=== PATIENT | female | born 1960 | race Caucasian/White ===

== ENCOUNTER 2018-11-29 14:53 | Inpatient (IN) | payer BC, SELFPAY ==
[2018-11-29] VITALS (17 sets, daily range): BP systolic 150–215; BP diastolic 73–116; PULSE 74–95; RESP 12–27; TEMP 36.9–37.3; O2SAT 75–97; BMI 50.9; BMI 50.8
--- NOTE | 2018-11-29 15:18 | EKG12_ITS ---
Test Reason : SOB Blood Pressure : / mmHG Vent. Rate : 083 BPM Atrial Rate : 083 BPM P-R Int : 142 ms QRS Dur : 080 ms QT Int : 378 ms P-R-T Axes : 049 097 046 degrees QTc Int : 444 ms Sinus rhythm with marked sinus arrhythmia Rightward axis Borderline ECG Confirmed by PRATIBHA MENSAH, TAPAN ([id number]), fashion editor JOSEY TRENT ([id number]) on 12/03/2018 1:14:03 PM Referred By: CHRISTINA Confirmed By:TAPAN MCKINNON MD
--- NOTE | 2018-11-29 15:18 | CT_ITS ---
STUDY: CTA CHEST REASON FOR EXAM: Female, 58 years old. Hypoxia, smoker. RADIATION DOSAGE (If Supplied By Facility): CTDIvol = ( 28.20 ) mGy, DLP = ( 747.06 ) mGycm TECHNIQUE: The examination was performed with the intravenous administration of 100mL IV Isovue 370. Post-processing of the angiographic images was performed, with multiplanar reformation and 3D reconstruction. Individualized dose optimization techniques were used for this CT. COMPARISON: None. FINDINGS: Normal enhancement of the main pulmonary artery and right and left pulmonary arteries. Normal enhancement of the bilateral peripheral pulmonary arteries. There is no demonstrated pulmonary embolism. The main pulmonary artery is dilated to 3.5 cm. Trace right pleural effusion. There is mild atelectasis along the anterior left upper lobe and lingula and mild bilateral costophrenic angle atelectasis. There is no focal pulmonary consolidation. Mild right middle lobe atelectasis and bronchiectasis medially. There are mild aortic calcifications.. There is no demonstrated aortic dissection. The heart is mildly enlarged. There is small pericardial effusion.. Mild coronary artery calcifications. No mediastinal, axillary or bulky hilar adenopathy. Normal visualized trachea and bronchi. Normal chest wall structures. Normal osseous structures. Normal visualized upper abdomen. CT/CTA Chest W/WO Contrast IMPRESSION: No pulmonary embolism or arterial dissection. The main pulmonary artery is dilated, this may represent pulmonary artery hypertension. Trace right pleural effusion and small pericardial effusion. Mild cardiomegaly. Electronically Signed: John Barbour, at 16:56 EDT Tel , Service support ,
--- NOTE | 2018-11-29 15:22 | ED.DCSUM_ITS ---
History of Present Illness Chief Complaint: Shortness of Breath Informant: Patient Onset: Weeks - 1 Narrative: Worsening dyspnea over the past week. Denies cough. Denies fever. Tobacco history. States has not smoked for the past week due to symptoms. Does complain of orthopnea sleeping on pillows. No leg swelling. Complains of exertional dyspnea with intermittent chest tightness. No recent travel, surgeries, or immobilizations. No history of PE or DVT. Does not take any daily medicines. Was seen at urgent care, sent here after breathing treatment. Denies wheezing. Denies history of similar, states did have pneumonia back in June and August. She had clinical symptoms at that time with productive sputum. triage noted pulse ox is 75% on room air, states is improving with oxygen. Blood pressure elevated, denies headache visual changes, current chest pains, nausea or vomiting. Complains of urine frequency. Prior similar symptoms: No Past Medical History - Allergies and Home Meds Allergies/Adverse Reactions: Allergies No Known Allergies Allergy (Verified 11/29/18 14:58) Primary Care Physician: Conrado Crowe PA [Primary Care Provider] - Smoking Status: Former smoker Review of Systems General: Denies: Chills, Fever, Sweats Eyes: Denies: Visual changes - bilaterally, Diplopia ENT: Denies: Rhinorrhea, Sore throat Cardiovascular: Denies: Chest pain, Palpitations Respiratory: Reports: Dyspnea, Dyspnea on exertion, Orthopnea. Denies: Cough Gastrointestinal: Denies: Abdominal pain, Nausea, Vomiting, Diarrhea, Melena, Hematochezia Genitourinary: Denies: Dysuria, Hematuria, Frequency Musculoskeletal: Denies: Back pain, Extremity Pain Skin: Denies: Rash, Wounds Neurological: Denies: Headache, Weakness, Numbness Physical Exam Vital Signs/Narrative: Vital Signs Temp Pulse Resp BP Pulse Ox 11/29/18 15:16 83 24 H 215/116 H 92 11/29/18 15:04 22 H 97 11/29/18 14:58 99.1 F 95 20 H 212/103 H 75 11/29/18 14:55 99.1 F 95 20 H 212/103 H 75 Inital Vital Signs reviewed: Yes General: Well nourished, Well developed, No Acute Distress Head: Normocephalic, Atraumatic Eyes: Perrl, EOMI ENT: Moist mucous membranes, No rhinorrhea Neck: Supple, Nontender Cardiovascular: Regular rate, Regular rhythm, No murmurs Respiratory: No distress, CTA bilaterally, Chest nontender Abdomen: Soft, Nontender, Nondistended, Normal bowel sounds Back: Nontender, Normal Inspection Extremities: Nontender, No edema Skin: Normal color, No rash Neurological: Alert, Oriented x3, Cranial nerves II-XII grossly intact, Normal Strength, Normal Sensation Psychological: Normal affect, Normal Mood Diagnostic/Tx/Re-eval Abnormal Lab Results 11/29/18 11/29/18 11/29/18 15:30 15:30 15:30 WBC 8.4 RBC 5.49 H Hgb 15.6 H Hct 50.4 H MCV 91.8 MCH 28.4 MCHC 31.0 L RDW 14.6 RDW Differential 49.0 H Plt Count 215 MPV 9.6 Immature Gran % (Auto) 0.100 Neut % (Auto) 67.7 Lymph % (Auto) 21.5 [place] % (Auto) 8.4 Eos % (Auto) 1.8 Baso % (Auto) 0.5 Absolute Neuts (auto) 5.7 Absolute Lymphs (auto) 1.80 Total Counted Not Reportable PT 13.1 INR 1.0 APTT 29.7 Sodium 140 Potassium 3.6 Chloride 101 Carbon Dioxide 38.0 H Anion Gap 1 L BUN 11 Creatinine 0.82 Estim Creat Clear Calc 58.42 Est GFR (MDRD) Af Amer 91 Est GFR (MDRD) Non-Af 75 BUN/Creatinine Ratio 13.4 Glucose 101 Calcium 8.7 Troponin I < 0.015 CTA chest: Negative for PE dissection. There is dilated pulmonary artery concerns for pulmonary hypertension. - Medical Decision Making Patient hypoxic 75% room air on arrival responded to O2. She complains of dyspnea normal lung sounds, no cough. There is no PE risk factors, however his presentation is moderate risk Wells criteria for PE with her hypoxemia. Discussed with patient work-up to rule out. Cardiac work-up including EKG normal. BNP still pending. She has no swelling the legs. Normal hemoglobin, normal electrolytes negative troponin. Blood pressure elevated on arrival multiple reevaluation still over 200 last checked at 1730 is 196/100. She is ordered for 10 mg IV labetalol heart rate was high 70s. ABG ordered for further evaluation due to hypoxia. Currently with accelerated hypertension with hypoxemia. I discussed with hospitalist for admission to PCU. ED Disposition - Plan for ED Patient: Disposition: Acute Care Hospital [facility] Diagnosis: Accelerated hypertension, Hypoxemia Referrals: Conrado Crowe PA [Primary Care Provider] -
[2018-11-29 15:45] LABS: Absolute Neutrophil Count 5.7 X10^3/uL (2.0-7.7); Basophil# 0.04 X10^3/uL; Basophil% 0.5 % (0-1); Eosinophil# 0.15 X10^3/uL; Eosinophils% 1.8 % (0-5); Hematocrit 50.4 % (37-47); Hemoglobin 15.6 g/dl (12.0-15.0); Lymphocyte % 21.5 % (19-41); Mean Corpuscular Hgb 28.4 pg (27.0-32.0); Mean Corpuscular Volume 91.8 fL (81-99); Mean Platelet Vol. 9.6 fl (6.2-12.0); Monocyte% 8.4 % (0-10); Neutrophil # 5.66 X10^3/uL (2.7-7.7); Neutrophil % 67.7 % (47-70); Platelet Count 215 K/mm3 (150-450); RBC Distribution Width CV 14.6 % (11.6-14.6); Red Blood Count 5.49 M/mm3 (4.2-5.4); White Blood Count 8.4 K/mm3 (4.4-11.0)
[2018-11-29 15:49] LABS: POSITIVE COUNT NO; POSITIVE DIFFERENTIAL NO; POSITIVE MORPHOLOGY NO
[2018-11-29 15:56] LABS: Prothrombin Time (Protime)PT. 13.1 SECONDS (11.7-14.9)
[2018-11-29 15:57] LABS: Partial Thromboplast Time 29.7 Seconds (24.1-36.2)
[2018-11-29 16:05] LABS: BUN 11 mg/dL (7-18); Creatinine, Serum 0.82 mg/dL (0.55-1.02); Estimated Creatinine Clearance 58.42 ml/min; Glucose 101 mg/dL (74-106)
[2018-11-29 16:06] LABS: Anion Gap 1 (5-15); BUN/Creat Ratio 13.4 RATIO (10-20); Calcium,Total 8.7 mg/dL (8.5-10.1); Chloride 101 mmol/L (98-107); EST Glomerular Filtration Rate 75 mL/min (>60); Est Glom Filt Rate - Afr Amer 91 mL/min (>60); Potassium 3.6 mmol/L (3.5-5.1); Sodium Level 140 mmol/L (136-145)
[2018-11-29 17:32] LABS: Bacteria 0 SEEN /hpf (None Seen); Mucous, Urine 0 SEEN /hpf (<or=2+)
[2018-11-29 17:40] LABS: Color, Urine Yellow (Yellow); Glucose, Dipstick Normal (Normal); Ketone-Dipstick Negative (Negative); Nitrite-Dipstick Negative (Negative); Occult Blood-Urine 10 /ul (Negative); Protein-Dipstick 30 mg/dl (Negative); Specific Gravity, Urine 1.005 (1.002-1.030); Urine Bilirubin Dipstick Negative (Negative); Urine Clarity Clear (Clear); Urine Urobilinogen Normal (Normal)
[2018-11-29 17:50] LABS: Red Blood Cells-Urine 5-10 SEEN /hpf (0-5)
--- NOTE | 2018-11-29 17:50 | PCM.HP.STD ---
<Edgardo Sagastume - Last Filed: 11/29/18 17:50> Problem List (1) Acute respiratory failure with hypoxia Status: Acute (2) HTN (hypertension) Status: Chronic (3) Obesity Status: Acute (4) Nicotine abuse Status: Acute History of Present Illness Date of Admission: 11/29/18 Chief Complaint: SOB The patient is a 58 year old F with pmhx of morbid obesity and nicotine abuse, not on any home meds, who presents to the ER with SOB. This has been progressively worsening over the past 2 weeks. She is SOB at rest and worse with exertion. No cough, fevers, or chills, no urinary issues. She has PND and orthopnea, and she states that she has gained about 10 lbs in the past 2 weeks - she states this is all in her belly which she feels is bloated. She has also felt palpitations this past week. No CP/heaviness/tightness. She reports along with her PND and orthopnea that she has witnessed apneic events at night and snores. She states she can sleep 24 hours per day and is tired all the time. She has slight LE edema. No dizziness / LH. In the ER she has hypoxia to the 70s at rest, stable on 2 liters. She has severely elevated htn. CTA chest shows pulmonary htn, trace pleural effusions and small pericardial effusion. Trop neg, BNP is pending. EKG is sinus arrhythmia. She smokes about 1/2 ppd, has smoked since about age 17 about 39 years. 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 Denies: Chills, Fever, Weight Change HEENT: Denies: Head Aches, Sinus Congestion, Sinus Drainage Cardiovascular: Reports: Edema, Orthopnea, Palpitations, Paroxysmal Noc. Dyspnea. Denies: Chest Pain, Claudication, Chest Pressure, Chest Tightness, Heaviness, Light Headedness, Syncope Respiratory: Reports: Shortness of Breath, Shortness of breath at rest. Denies: Cough, Pleuritic Pain, Shortness of breath upon exertion, Sputum production, Wheezing Gastrointestinal: Reports: - - bloating. Denies: Abdominal Pain, Nausea, Vomiting Genitourinary: Denies: Dysuria, Retention, Urgency Musculoskeletal: Denies: Joint Pain, Joint Tenderness Skin: Denies: Rash, Wounds Neurological: Denies: Numbness, Tingling, Focal weakness Psychiatric: Denies: Anxiety, Depression, Homicidal Ideations, Suicidal Ideations Hematologic/ Lymphatic: Denies: Easy Bruising, Easy Bleeding VTE Information - Inpt Only VTE Present on Admission: No VTE Mechan Device Prophylaxis: None VTE Pharm Prophylaxis ordered?: Yes Patient Problems: Active and Suspected Problems Accelerated hypertension (Acute) Hypoxemia (Acute) Obesity (Acute) Nicotine abuse (Acute) Acute respiratory failure with hypoxia (Acute) - Physical Exam General: Alert, Oriented x3, Cooperative HEENT: Atraumatic, PERRLA, EOMI, Normocephalic Neck: Supple, No JVD, Negative Carotid Bruits Lungs: Clear to auscultation, Diminished Cardiovascular: No murmurs, Irregular Rate Abdomen: Bowel Sounds Present, Soft, Non Tender, Obese Extremities: Edema - trace Skin: No rashes, No breakdown Musculoskeletal: No Tenderness to Palpation of Joints or Extremities Neurological: Cranial nerves II-XII grossly intact Psych/Mental Status: Normal Affect, Appropriate, Alert and oriented to time, place, person, mood and affect Vital Signs Temp Pulse Resp BP Pulse Ox 99.1 F 79 18 196/100 H 95 11/29/18 14:58 11/29/18 17:26 11/29/18 17:26 11/29/18 17:26 11/29/18 17:26 Oxygen Flow Rate (L/min) 2 Oxygen Delivery Method Nasal Cannula Weight: 278 lb 6.4 oz Body Mass Index (BMI) 50.9 Laboratory Tests Past 24 Hrs 11/29/18 11/29/18 11/29/18 15:30 15:30 15:30 WBC 8.4 RBC 5.49 H Hgb 15.6 H Hct 50.4 H MCV 91.8 MCH 28.4 MCHC 31.0 L RDW 14.6 RDW Differential 49.0 H Plt Count 215 MPV 9.6 Immature Gran % (Auto) 0.100 Neut % (Auto) 67.7 Lymph % (Auto) 21.5 Stanley % (Auto) 8.4 Eos % (Auto) 1.8 Baso % (Auto) 0.5 Absolute Neuts (auto) 5.7 Absolute Lymphs (auto) 1.80 Total Counted Not Reportable PT 13.1 INR 1.0 APTT 29.7 Sodium 140 Potassium 3.6 Chloride 101 Carbon Dioxide 38.0 H Anion Gap 1 L BUN 11 Creatinine 0.82 Estim Creat Clear Calc 58.42 Est GFR (MDRD) Af Amer 91 Est GFR (MDRD) Non-Af 75 BUN/Creatinine Ratio 13.4 Glucose 101 Calcium 8.7 Troponin I < 0.015 Urine Color Urine Clarity Urine pH Ur Specific [place] Urine Protein Urine Glucose (UA) Urine Ketones Urine Occult Blood Urine Nitrite Urine Bilirubin Urine Urobilinogen Ur Leukocyte Esterase Urine RBC Urine WBC Ur Squamous Epith Cells Urine Bacteria Urine Mucus 11/29/18 17:16 WBC RBC Hgb Hct MCV MCH MCHC RDW RDW Differential Plt Count MPV Immature Gran % (Auto) Neut % (Auto) Lymph % (Auto) Stanley % (Auto) Eos % (Auto) Baso % (Auto) Absolute Neuts (auto) Absolute Lymphs (auto) Total Counted PT INR APTT Sodium Potassium Chloride Carbon Dioxide Anion Gap BUN Creatinine Estim Creat Clear Calc Est GFR (MDRD) Af Amer Est GFR (MDRD) Non-Af BUN/Creatinine Ratio Glucose Calcium Troponin I Urine Color Yellow Urine Clarity Clear Urine pH 6.0 Ur Specific [place] 1.005 Urine Protein 30 H Urine Glucose (UA) Normal Urine Ketones Negative Urine Occult Blood 10 H Urine Nitrite Negative Urine Bilirubin Negative Urine Urobilinogen Normal Ur Leukocyte Esterase 500 H Urine RBC Pending Urine WBC Pending Ur Squamous Epith Cells Pending Urine Bacteria Pending Urine Mucus Pending Assessment/Plan All Active Problems Accelerated hypertension (Acute) Hypoxemia (Acute) Obesity (Acute) Nicotine abuse (Acute) Acute respiratory failure with hypoxia (Acute) 1. Acute hypoxic/hypercapneic respiratory failure - suspect underlying pulmonary htn, cor pulmonale/CHF. CTA with pulmonary htn, small effusions, recent 10 lb unexplained weight gain over 2 weeks, trace lower extremity edema, increased abdominal bloating. +PND and orthopnea. EKG with sinus arrhythmia. BNP pending. Trop neg x1, cycle. Maintain on tele. Overnight trending pulse ox. Obtain echo. start IV lasix. -doubt infectious etiology no cough fevers/chills, leukocytosis, no urinary symptoms. -consider pulmonary consult. 2. Hypertensive emergency - contributing to above. Start lasix. PRN hydralazine. 3. Suspected YAMILETH / OHS - feels tired all day, can sleep 24 hours straight, very htn, witnessed apnea, snores, very obese with large neck. Trending overnight pulse ox. Needs o/p sleep study. Consider cpap/bipap trial. 4. 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 5. Nicotine abuse - patch if desired. Increased CO2. Needs o/p PFTs with 40 yr smoking hx. No wheezing on exam. Diminished lungs throughout. DVT ppx: lovenox This patient was seen by Edgardo Sagastume PA-C under the supervision of Dr. Gonsalves <Jelly Gonsalves - Last Filed: 11/29/18 21:09> History of Present Illness The patient is a 58 year old F [] Past Medical History Allergies No Known Allergies Allergy (Verified 11/29/18 14:58) - Physical Exam Vital Signs Temp Pulse Resp BP Pulse Ox 98.6 F 75 20 H 164/80 H 96 11/29/18 20:20 11/29/18 20:20 11/29/18 20:20 11/29/18 20:20 11/29/18 20:20 Oxygen Flow Rate (L/min) 3 Oxygen Delivery Method Nasal Cannula Weight: 125.9 kg Body Mass Index (BMI) 50.8 Laboratory Tests Past 24 Hrs 11/29/18 11/29/18 11/29/18 15:30 15:30 15:30 WBC 8.4 RBC 5.49 H Hgb 15.6 H Hct 50.4 H MCV 91.8 MCH 28.4 MCHC 31.0 L RDW 14.6 RDW Differential 49.0 H Plt Count 215 MPV 9.6 Immature Gran % (Auto) 0.100 Neut % (Auto) 67.7 Lymph % (Auto) 21.5 Stanley % (Auto) 8.4 Eos % (Auto) 1.8 Baso % (Auto) 0.5 Absolute Neuts (auto) 5.7 Absolute Lymphs (auto) 1.80 Total Counted Not Reportable PT 13.1 INR 1.0 APTT 29.7 Specimen Type Sample Site pH Bicarbonate Actual POC Total CO2 Base Excess O2 Saturation ABG pCO2 ABG pO2 O2 Delivery Device Liter Flow Blood Gas Notified Whom Sodium 140 Potassium 3.6 Chloride 101 Carbon Dioxide 38.0 H Anion Gap 1 L BUN 11 Creatinine 0.82 Estim Creat Clear Calc 58.42 Est GFR (MDRD) Af Amer 91 Est GFR (MDRD) Non-Af 75 BUN/Creatinine Ratio 13.4 Glucose 101 Calcium 8.7 Troponin I < 0.015 B-Natriuretic Peptide Urine Color Urine Clarity Urine pH Ur Specific [place] Urine Protein Urine Glucose (UA) Urine Ketones Urine Occult Blood Urine Nitrite Urine Bilirubin Urine Urobilinogen Ur Leukocyte Esterase Urine RBC Urine WBC Ur Squamous Epith Cells Urine Bacteria Urine Mucus 11/29/18 11/29/18 11/29/18 15:30 17:16 18:15 WBC RBC Hgb Hct MCV MCH MCHC RDW RDW Differential Plt Count MPV Immature Gran % (Auto) Neut % (Auto) Lymph % (Auto) Stanley % (Auto) Eos % (Auto) Baso % (Auto) Absolute Neuts (auto) Absolute Lymphs (auto) Total Counted PT INR APTT Specimen Type ART Sample Site L Radial pH 7.30 L Bicarbonate Actual 34.6 H POC Total CO2 37 Base Excess 8 H O2 Saturation 93 L ABG pCO2 69.9 H* ABG pO2 78 O2 Delivery Device Nasal Can Liter Flow 3.0 Blood Gas Notified Whom ED Sodium Potassium Chloride Carbon Dioxide Anion Gap BUN Creatinine Estim Creat Clear Calc Est GFR (MDRD) Af Amer Est GFR (MDRD) Non-Af BUN/Creatinine Ratio Glucose Calcium Troponin I B-Natriuretic Peptide 99.6 Urine Color Yellow Urine Clarity Clear Urine pH 6.0 Ur Specific [place] 1.005 Urine Protein 30 H Urine Glucose (UA) Normal Urine Ketones Negative Urine Occult Blood 10 H Urine Nitrite Negative Urine Bilirubin Negative Urine Urobilinogen Normal Ur Leukocyte Esterase 500 H Urine RBC 5-10 SEEN Urine WBC 5-10 SEEN Ur Squamous Epith Cells 0-5 SEEN Urine Bacteria 0 SEEN Urine Mucus 0 SEEN 11/29/18 18:50 WBC RBC Hgb Hct MCV MCH MCHC RDW RDW Differential Plt Count MPV Immature Gran % (Auto) Neut % (Auto) Lymph % (Auto) Stanley % (Auto) Eos % (Auto) Baso % (Auto) Absolute Neuts (auto) Absolute Lymphs (auto) Total Counted PT INR APTT Specimen Type Sample Site pH Bicarbonate Actual POC Total CO2 Base Excess O2 Saturation ABG pCO2 ABG pO2 O2 Delivery Device Liter Flow Blood Gas Notified Whom Sodium Potassium Chloride Carbon Dioxide Anion Gap BUN Creatinine Estim Creat Clear Calc Est GFR (MDRD) Af Amer Est GFR (MDRD) Non-Af BUN/Creatinine Ratio Glucose Calcium Troponin I < 0.015 B-Natriuretic Peptide Urine Color Urine Clarity Urine pH Ur Specific [place] Urine Protein Urine Glucose (UA) Urine Ketones Urine Occult Blood Urine Nitrite Urine Bilirubin Urine Urobilinogen Ur Leukocyte Esterase Urine RBC Urine WBC Ur Squamous Epith Cells Urine Bacteria Urine Mucus Assessment/Plan This patient was seen in conjunction with TAVON Dangelo. I have independently interviewed and examined the patient and reviewed pertinent historical, laboratory, and other data. Please refer to TAVON Dangelo note for his patient's presentation, findings, and recommendations. I have reviewed and his note and concur with his documentation CC: Shortness of breath worsening over the last couple of weeks. HPI: 58-year-old female with no significant past medical history, remote history of PE, not on any medications, who comes in with progressive worsening shortness of breath ongoing for weeks. Patient admits to orthopnea, PND, leg swelling, weight gain. She has dyspnea on exertion and at rest. SPO2 in the ED was 75%. Patient improved with intranasal cannula. PMHX: Most history of PE PSHx: Status post hysterectomy FHX: Mother had heart disease, had prostate cancer SHX: Smokes, denies any use of alcohol or illicit drugs Physical Exam: Vitals: Temperature is 99.1 F, heart rate is 95, blood pressure is 212/103, respiratory rate is 20, SPO2 is 75% on room air Gen: Maira obese, comfortable sitting in a chair, on 2 L of oxygen,, not pale, not jaundiced CVS:HS I +II, regular, tachycardia RESP: Diminished at lung bases, with coarse crackles heard GI: BS present and normal, soft, nontender, no palpable organs EXT: Bilateral trace to +1 pedal edema Labs: WBC count 8.4, hemoglobin 15.6, platelet count 215, BMP is unremarkable, UA is unremarkable ABG showed pH 7.30, PCO2 69.9, PO2 78 CTA chest was suggestive of pulmonary hypertension, no PE, trace right pleural effusion, small pericardial effusion, mild cardiomegaly ASSESSMENT: 1. Acute combined respiratory failure 2. Pulmonary hypertension seen on CTA chest 3. Possible YAMILETH, not formally diagnosed 4. Possible acute diastolic CHF 5. Super morbid obesity 6. Nicotine dependence, advised to quit 7. Possible COPD, no signs of exacerbation now Plan: Admit to PCU, continue onoxygen Repeat ABG; will have low threshold of starting BiPAP if ABGs are the same or worse Breathing treatments Pulmonology consult Low-dose Lasix 20 mg IV, strict I's and O's Nicotine patch Will hold off start of IV steroids as I am not convinced patient is in COPD exacerbation 2D echo, sleep study (in the outpatient) She may need right heart cath to assist in evaluating for pulmonary hypertension Code Visit Inpatient E&M: 09973 Init Hosp L3
[2018-11-29 17:51] LABS: Leukocyte Esterase-Dipstick 500 /ul (Negative); Squamous Epithelial Cells - UA 0-5 SEEN /hpf (5-10); White Blood Cells 5-10 SEEN /hpf (0-5)
[2018-11-29 18:26] LABS: Base Excess 8 mmol/L (-2 to +2); Bicarbonate 34.6 mmol/L (22-26); Blood Gas Specimen Type ART; O2 Delivery Device Nasal Can; PO2 78 mmHG (75-100); SITE L Radial; SO2 93 % (95-99); Total Carbon Dioxide 37 mmol/L; pCO2 69.9 mmHg (35-45)
[2018-11-29 18:37] LABS: BNP,B-Type NATRIURETIC PEPTIDE 99.6 pg/mL (0-100)
--- NOTE | 2018-11-29 18:49 | CPS ---
Critical results shown to Dr. Rodriguez
[2018-11-29] MEDS: Ipratropium/Albuterol Sulfate 3 ML AMPUL.NEB INHALATION (21:46)
[2018-11-29] MEDS: Furosemide 20 MG/2 ML VIAL IV (22:07)
[2018-11-29] MEDS: Heparin Injection (Vial) 5,000 UNIT/ML VIAL 5000 UNIT SC (22:08)
[2018-11-29] MEDS: 0.9% NaCl Peripheral Flush Adult/Peds IV ×2 (22:08→22:10)
[2018-11-29 22:20] LABS: Allen Test POS; Base Excess 8 mmol/L (-2 to +2); Bicarbonate 34.6 mmol/L (22-26); Blood Gas Specimen Type ART; O2 Delivery Device Nasal Can; PO2 78 mmHG (75-100); SITE L Radial; SO2 93 % (95-99); Time Given 2200; Total Carbon Dioxide 37 mmol/L; pCO2 71.6 mmHg (35-45); pH 7.29 (7.35-7.45)
--- NOTE | 2018-11-29 23:24 | CPS ---
abg results were called to Dr Conway. bipap was ordered ph [phone] pco2 [phone]
[2018-11-30] VITALS (25 sets, daily range): BP systolic 96–166; BP diastolic 48–97; PULSE 73–87; RESP 12–28; TEMP 36.5–37.1; O2SAT 88–96
[2018-11-30 06:16] LABS: Absolute Lymphocyte Count 1.68 X10^3/ul (0.83-4.51); Absolute Neutrophil Count 4.3 X10^3/uL (2.0-7.7); Basophil# 0.02 X10^3/uL; Basophil% 0.3 % (0-1); Eosinophil# 0.13 X10^3/uL; Eosinophils% 1.9 % (0-5); Hematocrit 49.7 % (37-47); Hemoglobin 14.8 g/dl (12.0-15.0); Lymphocyte # 1.68 X10^3/ul (4.0); Lymphocyte % 24.9 % (19-41); Mean Corp Hgb Conc 29.8 g/gl (32-36); Mean Corpuscular Hgb 27.5 pg (27.0-32.0); Mean Corpuscular Volume 92.4 fL (81-99); Mean Platelet Vol. 9.7 fl (6.2-12.0); Monocyte# 0.64 X10^3/uL; Monocyte% 9.5 % (0-10); Neutrophil # 4.28 X10^3/uL (2.7-7.7); Neutrophil % 63.3 % (47-70); POSITIVE COUNT NO; POSITIVE DIFFERENTIAL NO; POSITIVE MORPHOLOGY NO; Platelet Count 210 K/mm3 (150-450); RBC Distribution Width SD 49.7 fl (35.1-43.9); Red Blood Count 5.38 M/mm3 (4.2-5.4); White Blood Count 6.8 K/mm3 (4.4-11.0)
[2018-11-30] MEDS: 0.9% NaCl Peripheral Flush Adult/Peds IV (06:17)
[2018-11-30] MEDS: Heparin Injection (Vial) 5,000 UNIT/ML VIAL 5000 UNIT SC ×3 (06:17→21:28)
[2018-11-30 06:33] LABS: Anion Gap 3 (5-15); BUN 10 mg/dL (7-18); Calcium,Total 8.7 mg/dL (8.5-10.1); Chloride 100 mmol/L (98-107); Creatinine, Serum 0.71 mg/dL (0.55-1.02); EST Glomerular Filtration Rate 89 mL/min (>60); Est Glom Filt Rate - Afr Amer 108 mL/min (>60); Estimated Creatinine Clearance 67.48 ml/min; Glucose 95 mg/dL (74-106); Potassium 3.8 mmol/L (3.5-5.1); Sodium Level 143 mmol/L (136-145)
[2018-11-30] MEDS: Ipratropium/Albuterol Sulfate 3 ML AMPUL.NEB INHALATION ×5 (06:40→22:18)
--- NOTE | 2018-11-30 07:33 | ECHOCS_ITS ---
Reason For Study: SOB Procedure This was a 2D Doppler, Color Flow transthoracic echocardiogram. The study was technically difficult. Pt scanned supine. Contrast injection was performed. Exam performed portable in patient room. Left Ventricle Normal LV size. Left ventricular systolic function is normal. The estimated ejection fraction is 65 %. Transmitral doppler flow suggestive of impaired relaxation of left ventricle. No regional wall motion abnormalities noted. Right Ventricle Normal RV size. Normal systolic function. Atria The left atrium is mildly enlarged. Normal right atrium. No doppler evidence for ASD. Mitral Valve There is no mitral annular calcification. Normal mitral valve. Trivial mitral valve insufficiency. Tricuspid Valve Normal tricuspid valve. Trivial tricuspid valve insufficiency. Right ventricular systolic pressure estimated to be 39 mmHg. Aortic Valve Trisinus/trileaflet aortic valve. Normal aortic valve. Pulmonic Valve The pulmonic valve is not well visualized. Trivial pulmonic valve insufficiency. Great Vessels Normal sized aortic root. Pericardium/Pleural Trivial pericardial effusion. There are no echocardiographic indications of cardiac tamponade. Medication Diluted definity 3.5ml given slow IV push to enhance endocardial definition. MMode/2D Measurements & Calculations LVIDd: 5.0 cm IVSd: 1.2 cm Ao root diam: 3.1 cm LVIDs: 3.4 cm LVPWd: 1.2 cm RVDd: 3.6 cm FS: 30.9 % LAV(MOD-bp): 58.8 ml LVAd ap4: 33.6 cm2 SV(MOD-sp4): 78.1 ml LAV(MOD-bp) Indexed: 26.7 ml/m2 EDV(MOD-sp4): 121.8 ml LAV(MOD-sp2): 50.0 ml EDV(sp4-el): 128.6 ml LAV(MOD-sp4): 55.7 ml LVAs ap4: 18.4 cm2 ESV(MOD-sp4): 43.8 ml ESV(sp4-el): 45.4 ml EF(MOD-sp4): 64.1 % EF(sp4-el): 64.7 % SV(sp4-el): 83.2 ml LA A4 area: 20.3 cm2 LA dimension(2D): 4.0 cm RA A4 area: 16.9 cm2 Time Measurements MV dec time: 0.26 sec Doppler Measurements & Calculations MV E max stephane: 116.7 cm/sec Lat Peak E' Stephane: 9.4 cm/sec Med Peak E' Stephane: 5.3 cm/sec MV A max stephane: 125.4 cm/sec E/E' lat: 12.4 E/E' med: 22.1 MV E/A: 0.93 Ao V2 max: 200.5 cm/sec LV V1 max: 119.4 cm/sec PA V2 max: 95.2 cm/sec Ao max P.1 mmHg LV V1 max P.7 mmHg TR max stephane: 278.6 cm/sec TR max P.4 mmHg Interpretation Summary The study was technically difficult. Contrast injection was performed. Left ventricular systolic function is normal. The estimated ejection fraction is 65 %. The left atrium is mildly enlarged. Trivial mitral valve insufficiency. Trivial tricuspid valve insufficiency. Trivial pulmonic valve insufficiency. Trivial pericardial effusion. There are no echocardiographic indications of cardiac tamponade. Right ventricular systolic pressure estimated to be 39 mmHg. Ordering Physician: Dayday Kam Referring Physician: RD EWING Performed By: Lety Perales RDCS, RVT
[2018-11-30] MEDS: Furosemide 20 MG/2 ML VIAL IV ×2 (09:33→10:26)
--- NOTE | 2018-11-30 10:30 | CASEMGMT ---
ELIE ESQUIVEL assessment: Face to Face with patient for initial transition planning/care coordination assessment. ELIE ESQUIVEL introduced self and role at [facility], pt voices understanding and consents to assessment at this time. Pt is sitting up on side of bed in no distress at this time. Pt is A/OX4 at this time and answers all questions appropriately at this time. Pt's is at bedside during assessment. Care providers, pharmacy, and demographics verified at this time. PCP: Sebastien Specialists: Pt states currently has no specialists. Preferred [facility]acy: [facility] Insurance: [place] Prescription Benefit: [place] Living Will/HPOA: Pt states does not have LW/HPOA but would like to complete at this time. Alina SW aware, voices understanding. LNOK: Nic Schneider, Living Arrangements: Pt states lives with in a 2 story home with 4-5 steps into home and states no concerns at home at this time. Pt is independent with ADL's at this time. Transportation: Pt states drives self and states no transportation concerns at this time. DME/HHC: Pt states no current DME or need for any at this time but pt may qualify for home oxygen at discharge. Green sheet left on the chart for home oxygen at this time. Pt states no hx of HHC or SNF in the past. Pt states no concerns with going home at time of discharge. 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 This ELIE ESQUIVEL advised pt to get forms from employer and have PCP complete forms for her, pt/ voice understanding. Pt states has been decreasing smoking and was down to about 1/4pk/day. Pt states she is going to be completely done with smoking now. Pt states does not drink ETOH. Pt/ voice no further concerns/needs at this time. CM to follow for any further discharge planning/needs. Advised pt to ask for CM if any further questions/concerns/needs arise, voices understanding. Pt Goal: Home Plan: Home w/ possible home oxygen. [place] ELIE ESQUIVEL
--- NOTE | 2018-11-30 10:49 | PCM.CONS.PUL ---
Problem List (1) Accelerated hypertension Status: Acute (2) Hypoxemia Status: Acute (3) HTN (hypertension) Status: Chronic Qualifiers: Hypertension type: essential hypertension Qualified Code(s): I10 - Essential (primary) hypertension (4) Obesity Status: Acute (5) Nicotine abuse Status: Acute (6) Acute respiratory failure with hypoxia Status: Acute Reason for Consult Date of Consultation: 11/30/18 Reason for Consultation: Hypoxia History of Present Illness: The patient is a 58 year old F, with past medical history listed below, who presented to [facility] on 11/29/2018 secondary to worsening shortness of breath. Patient reported that she has had worsening shortness of breath over the last 6 months, but this became significantly worse over the last week. Patient reports that she had the flu in June and has never made it back to normal since. Patient states that over the last week she is noted some increased lower extremity swelling with exertional dyspnea and chest tightness. Patient did not report any significant wheezing. Patient did not have a history of PE or DVT in the past. Patient does have an extensive smoking history, but does not use any inhalers at baseline. Patient was seen at a local urgent care and given an aerosol therapy. Patient did not respond and presented to the ER for further evaluation. In the ER, patient was noted to have a saturation of 75% on room air. Patient was placed on supplemental oxygen with some improvement. Patient did require BiPAP therapy for a short period of time and was admitted to the PCU on stepdown status. Was also noted to have accelerated blood pressures with systolics greater than 200. Patient was given some IV labetalol with good response. 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 Patient has noted that she has had some lower extremity edema recently. Patient's reports that he had noted that she was having significant difficulty with walking up hills over the last 1 to 2 weeks. Patient states that her dyspnea was scary at times. Patient does snore on a daily basis. Patient states that she is fatigued during the day and can readily fall asleep while watching TV or reading. Patient does have apneic events per her 's report. Patient has never had a sleep study. Patient does report increased weight recently, but has always had weight issues. She is not typically on supplemental oxygen at home. Review of systems otherwise negative x10 systems. Past Medical History Past Medical History (Chronic Problems): Chronic Problems HTN (hypertension) (Chronic) Allergies No Known Allergies Allergy (Verified 11/29/18 14:58) Home Medications: Ambulatory Orders Medication Instructions Recorded NK 11/29/18 Surgical History: hysterectomy Psychiatric History: No pertinent psych hx TECHNICIAN TRAINEE History: No pertinent TECHNICIAN TRAINEE history Lives: Spouse/ Significant Other Smoking Status: Current every day smoker Tobacco Use: Cigarettes Alcohol: None Drugs: None - *Family History Maternal History Items: Heart Disease Paternal History Items: Cancer - prostate Review of Systems Comment: See HPI Patient Problems: Active and Suspected Problems Accelerated hypertension (Acute) Hypoxemia (Acute) Obesity (Acute) Nicotine abuse (Acute) Acute respiratory failure with hypoxia (Acute) Objective: All imaging was personally reviewed. CT scan of the chest was significant for a trace pleural effusion, but pulmonary artery was significantly dilated. Pulmonary artery was actually larger than the aorta on my review. No significant emphysematous changes were appreciated. - Physical Exam General: Alert, Oriented x3, Cooperative, No apparent distress, - - Morbidly obese. Speaking in full sentences. Nasal cannula oxygen in place HEENT: Atraumatic, PERRLA, EOMI, Normocephalic, - - No scleral icterus or injection noted. Oral: Moist Mucosa, No Gingival or Mucosal Lesions/ Ulcerations Neck: Supple, No JVD, No Nodes, Trachea Midline Lungs: No rhonchi, No wheeze, Diminished, Rales - Right base, - - Symmetric expansion. No dullness to percussion. Cardiovascular: Regular rate, Regular Rhythm, Normal S1, No murmurs, No rub noted, No Gallop, - - Accentuated S2 sound Abdomen: Bowel Sounds Present, Soft, Non Tender, Non-Distended, Obese Extremities: No clubbing, No cyanosis, Edema - 2+ lower extremity Skin: No rashes, No breakdown Musculoskeletal: No Tenderness to Palpation of Joints or Extremities, No Muscle Wasting Lymphatic: No Cervical, Supraclavicular, or Inguinal Adenopathy Neurological: Cranial nerves II-XII grossly intact, Neuro grossly intact, Motor Exam 5/5 strength throughout Psych/Mental Status: Alert and oriented to time, place, person, mood and affect Vital Signs Temp Pulse Resp BP Pulse Ox 36.5 C L 77 16 135/97 H 88 11/30/18 06:00 05/31/19 10:00 11/30/18 10:00 11/30/18 10:00 11/30/18 10:00 Oxygen Flow Rate (L/min) 2 Oxygen Delivery Method Nasal Cannula Weight: 126.1 kg Body Mass Index (BMI) 50.8 Intake and Output for Last 24 Hours 11/28/18 11/29/18 11/30/18 23:59 23:59 23:59 Output Total 350 / 350 Balance -350 / -350 Laboratory Tests Past 24 Hrs 11/29/18 11/29/18 11/29/18 15:30 15:30 15:30 WBC 8.4 RBC 5.49 H Hgb 15.6 H Hct 50.4 H MCV 91.8 MCH 28.4 MCHC 31.0 L RDW 14.6 RDW Differential 49.0 H Plt Count 215 MPV 9.6 Immature Gran % (Auto) 0.100 Neut % (Auto) 67.7 Lymph % (Auto) 21.5 Clayton % (Auto) 8.4 Eos % (Auto) 1.8 Baso % (Auto) 0.5 Absolute Neuts (auto) 5.7 Absolute Lymphs (auto) 1.80 Total Counted Not Reportable PT 13.1 INR 1.0 APTT 29.7 Specimen Type Sample Site pH Bicarbonate Actual POC Total CO2 Base Excess O2 Saturation ABG pCO2 ABG pO2 Iraj Test O2 Delivery Device Liter Flow Blood Gas Notified Whom Blood Gas Notified Time Sodium 140 Potassium 3.6 Chloride 101 Carbon Dioxide 38.0 H Anion Gap 1 L BUN 11 Creatinine 0.82 Estim Creat Clear Calc 58.42 Est GFR (MDRD) Af Amer 91 Est GFR (MDRD) Non-Af 75 BUN/Creatinine Ratio 13.4 Glucose 101 Calcium 8.7 Troponin I < 0.015 B-Natriuretic Peptide Urine Color Urine Clarity Urine pH Ur Specific [place] Urine Protein Urine Glucose (UA) Urine Ketones Urine Occult Blood Urine Nitrite Urine Bilirubin Urine Urobilinogen Ur Leukocyte Esterase Urine RBC Urine WBC Ur Squamous Epith Cells Urine Bacteria Urine Mucus 11/29/18 11/29/18 11/29/18 15:30 17:16 18:15 WBC RBC Hgb Hct MCV MCH MCHC RDW RDW Differential Plt Count MPV Immature Gran % (Auto) Neut % (Auto) Lymph % (Auto) Clayton % (Auto) Eos % (Auto) Baso % (Auto) Absolute Neuts (auto) Absolute Lymphs (auto) Total Counted PT INR APTT Specimen Type ART Sample Site L Radial pH 7.30 L Bicarbonate Actual 34.6 H POC Total CO2 37 Base Excess 8 H O2 Saturation 93 L ABG pCO2 69.9 H* ABG pO2 78 Iraj Test O2 Delivery Device Nasal Can Liter Flow 3.0 Blood Gas Notified Whom Blood Gas Notified Time Sodium Potassium Chloride Carbon Dioxide Anion Gap BUN Creatinine Estim Creat Clear Calc Est GFR (MDRD) Af Amer Est GFR (MDRD) Non-Af BUN/Creatinine Ratio Glucose Calcium Troponin I B-Natriuretic Peptide 99.6 Urine Color Yellow Urine Clarity Clear Urine pH 6.0 Ur Specific [place] 1.005 Urine Protein 30 H Urine Glucose (UA) Normal Urine Ketones Negative Urine Occult Blood 10 H Urine Nitrite Negative Urine Bilirubin Negative Urine Urobilinogen Normal Ur Leukocyte Esterase 500 H Urine RBC 5-10 SEEN Urine WBC 5-10 SEEN Ur Squamous Epith Cells 0-5 SEEN Urine Bacteria 0 SEEN Urine Mucus 0 SEEN 11/29/18 11/29/18 11/29/18 18:50 21:40 22:11 WBC RBC Hgb Hct MCV MCH MCHC RDW RDW Differential Plt Count MPV Immature Gran % (Auto) Neut % (Auto) Lymph % (Auto) Clayton % (Auto) Eos % (Auto) Baso % (Auto) Absolute Neuts (auto) Absolute Lymphs (auto) Total Counted PT INR APTT Specimen Type ART Sample Site L Radial pH 7.29 L Bicarbonate Actual 34.6 H POC Total CO2 37 Base Excess 8 H O2 Saturation 93 L ABG pCO2 71.6 H* ABG pO2 78 Iraj Test POS O2 Delivery Device Nasal Can Liter Flow 3.0 Blood Gas Notified Whom [facility] Blood Gas Notified Time 2200 Sodium Potassium Chloride Carbon Dioxide Anion Gap BUN Creatinine Estim Creat Clear Calc Est GFR (MDRD) Af Amer Est GFR (MDRD) Non-Af BUN/Creatinine Ratio Glucose Calcium Troponin I < 0.015 < 0.015 B-Natriuretic Peptide Urine Color Urine Clarity Urine pH Ur Specific [place] Urine Protein Urine Glucose (UA) Urine Ketones Urine Occult Blood Urine Nitrite Urine Bilirubin Urine Urobilinogen Ur Leukocyte Esterase Urine RBC Urine WBC Ur Squamous Epith Cells Urine Bacteria Urine Mucus 11/30/18 11/30/18 05:25 05:25 WBC 6.8 RBC 5.38 Hgb 14.8 Hct 49.7 H MCV 92.4 MCH 27.5 MCHC 29.8 L RDW 15.0 H RDW Differential 49.7 H Plt Count 210 MPV 9.7 Immature Gran % (Auto) 0.100 Neut % (Auto) 63.3 Lymph % (Auto) 24.9 Clayton % (Auto) 9.5 Eos % (Auto) 1.9 Baso % (Auto) 0.3 Absolute Neuts (auto) 4.3 Absolute Lymphs (auto) 1.68 Total Counted Not Reportable PT INR APTT Specimen Type Sample Site pH Bicarbonate Actual POC Total CO2 Base Excess O2 Saturation ABG pCO2 ABG pO2 Iraj Test O2 Delivery Device Liter Flow Blood Gas Notified Whom Blood Gas Notified Time Sodium 143 Potassium 3.8 Chloride 100 Carbon Dioxide 40.0 H Anion Gap 3 L BUN 10 Creatinine 0.71 Estim Creat Clear Calc 67.48 Est GFR (MDRD) Af Amer 108 Est GFR (MDRD) Non-Af 89 BUN/Creatinine Ratio 14.0 Glucose 95 Calcium 8.7 Troponin I B-Natriuretic Peptide Urine Color Urine Clarity Urine pH Ur Specific [place] Urine Protein Urine Glucose (UA) Urine Ketones Urine Occult Blood Urine Nitrite Urine Bilirubin Urine Urobilinogen Ur Leukocyte Esterase Urine RBC Urine WBC Ur Squamous Epith Cells Urine Bacteria Urine Mucus Clinical Impression(s) from Imaging Studies Chest CTA 11/29/18 15:18 IMPRESSION: No pulmonary embolism or arterial dissection. The main pulmonary artery is dilated, this may represent pulmonary artery hypertension. Trace right pleural effusion and small pericardial effusion. Mild cardiomegaly. Electronically Signed: John Barbour, at 16:56 EDT Tel , Service support , Assessment/Plan All Active Problems Accelerated hypertension (Acute) Hypoxemia (Acute) Obesity (Acute) Nicotine abuse (Acute) Acute respiratory failure with hypoxia (Acute) RECOMMENDATIONS: 1. Increase diuresis 2. Encourage incentive spirometer and ambulation as tolerated 3. Await echocardiogram 4. Encourage smoking cessation 5. Wean oxygen as tolerated 6. Likely okay to transition to PCU status, but would continue continuous pulse ox IMPRESSIONS: 1. Acute hypoxic respiratory failure Patient did receive BiPAP transiently, but appears to be doing well on nasal cannula at this time. Clinical suspicion for multifactorial hypoxic respiratory failure. Patient does have a long smoking history and may have an element of COPD. Patient does have compensated CO2 retention on ABG. Would need a room air ABG to see if patient has an element of obesity hypoventilation syndrome. Patient also likely has untreated obstructive sleep apnea. Patient does have elevated pulmonary artery pressures on CT scan, but echocardiogram is currently pending. Patient would benefit from aggressive diuresis. Outpatient pulmonary function test for quantification and clarification of lung function. Patient will also need a sleep study for evaluation of obstructive sleep apnea given high clinical suspicion. Patient may also have an element of diastolic congestive heart failure. 2. Hypertensive emergency Clinical suspicion for untreated hypertension. Patient did respond to PRN medications. Will attempt to normalize fluid status. Continue to monitor closely. Given morbid obesity, this could result in worsening of diastolic dysfunction 3. Morbid obesity/nicotine abuse/lack of PCP Complicates care, management, recovery and prognosis. Patient should be established/reestablished with PCP at discharge. Continue with nicotine patch. Encourage weight loss. Code Visit Inpatient E&M: 45049 Init Hosp L3
--- NOTE | 2018-11-30 12:52 | CHAPLAIN ---
Type of Pastoral Visit _x__ Initial Visit ___ Follow-up Visit ___ On-call Visit ___ General Patient Visit ___ Spiritual Assessment ___ Family Conference ___ Bereavement ___ Rapid Response ___ Code Blue ___ Other (describe below) Pastoral Care Referral From _x__ Patient ___ Family ___ Nurse ___ Physician ___ Bioinformatics Computer Scientist ___ K9 Handler ___ Other (describe below) Sacrament/Intervention _x__ Active listening ___ Anointing ___ Uatsdin ___ Bereavement ___ Communion ___ Marci exploration ___ ___ Life review _x__ Prayer ___ Reconciliation ___ Sacrament of Sick _x__ Supportive presence ___ Wedding ___ Other (describe below) Pastoral Comments patient is having anxiety over concerns about work, time off, phone calls, and decisions to be made; reference made to DEVON and CM
--- NOTE | 2018-11-30 13:02 | PN_ITS ---
<Edgardo Sagastume - Last Filed: 11/30/18 12:57> Patient Problems: Active and Suspected Problems Accelerated hypertension (Acute) Hypoxemia (Acute) Obesity (Acute) Nicotine abuse (Acute) Acute respiratory failure with hypoxia (Acute) Subjective: Pt slept well last night with bipap, despite uncomfortably bed. She reports t cristo she feels more energetic than she usually has on waking. agrees she looks improved. No cough, fevers, chills. Some persistent LE edema. Pt feels that there is less difficulty taking a breath. She is still on o2. - Physical Exam General: Alert, Oriented x3, Cooperative HEENT: Atraumatic, PERRLA, EOMI, Normocephalic Neck: Supple, No JVD, Negative Carotid Bruits Lungs: Diminished, Rales Cardiovascular: Regular rate, No murmurs Abdomen: Bowel Sounds Present, Soft, Non Tender Extremities: Capillary Refill Less than 3 Seconds, Edema - 1+ pitting edema Skin: No rashes, No breakdown Musculoskeletal: No Tenderness to Palpation of Joints or Extremities Neurological: Cranial nerves II-XII grossly intact Psych/Mental Status: Normal Affect, Appropriate, Alert and oriented to time, place, person, mood and affect Vital Signs Temp Pulse Resp BP Pulse Ox 98.8 F 74 16 135/87 H 92 11/30/18 12:00 11/30/18 12:00 11/30/18 12:00 11/30/18 12:00 11/30/18 12:00 Oxygen Flow Rate (L/min) 2 Oxygen Delivery Method Nasal Cannula Weight: 278 lb 0.046 oz Body Mass Index (BMI) 50.8 Intake and Output for Last 24 Hours 11/28/18 11/29/18 11/30/18 23:59 23:59 23:59 Intake Total 480 / 480 Output Total 1150 / 1150 Balance -670 / -670 Laboratory Tests Past 24 Hrs 11/29/18 11/29/18 11/29/18 15:30 15:30 15:30 WBC 8.4 RBC 5.49 H Hgb 15.6 H Hct 50.4 H MCV 91.8 MCH 28.4 MCHC 31.0 L RDW 14.6 RDW Differential 49.0 H Plt Count 215 MPV 9.6 Immature Gran % (Auto) 0.100 Neut % (Auto) 67.7 Lymph % (Auto) 21.5 [place] % (Auto) 8.4 Eos % (Auto) 1.8 Baso % (Auto) 0.5 Absolute Neuts (auto) 5.7 Absolute Lymphs (auto) 1.80 Total Counted Not Reportable PT 13.1 INR 1.0 APTT 29.7 Specimen Type Sample Site pH Bicarbonate Actual POC Total CO2 Base Excess O2 Saturation ABG pCO2 ABG pO2 Iraj Test O2 Delivery Device Liter Flow Blood Gas Notified Whom Blood Gas Notified Time Sodium 140 Potassium 3.6 Chloride 101 Carbon Dioxide 38.0 H Anion Gap 1 L BUN 11 Creatinine 0.82 Estim Creat Clear Calc 58.42 Est GFR (MDRD) Af Amer 91 Est GFR (MDRD) Non-Af 75 BUN/Creatinine Ratio 13.4 Glucose 101 Calcium 8.7 Troponin I < 0.015 B-Natriuretic Peptide Urine Color Urine Clarity Urine pH Ur Specific [place] Urine Protein Urine Glucose (UA) Urine Ketones Urine Occult Blood Urine Nitrite Urine Bilirubin Urine Urobilinogen Ur Leukocyte Esterase Urine RBC Urine WBC Ur Squamous Epith Cells Urine Bacteria Urine Mucus 11/29/18 11/29/18 11/29/18 15:30 17:16 18:15 WBC RBC Hgb Hct MCV MCH MCHC RDW RDW Differential Plt Count MPV Immature Gran % (Auto) Neut % (Auto) Lymph % (Auto) [place] % (Auto) Eos % (Auto) Baso % (Auto) Absolute Neuts (auto) Absolute Lymphs (auto) Total Counted PT INR APTT Specimen Type ART Sample Site L Radial pH 7.30 L Bicarbonate Actual 34.6 H POC Total CO2 37 Base Excess 8 H O2 Saturation 93 L ABG pCO2 69.9 H* ABG pO2 78 Iraj Test O2 Delivery Device Nasal Can Liter Flow 3.0 Blood Gas Notified Whom ED MD Blood Gas Notified Time Sodium Potassium Chloride Carbon Dioxide Anion Gap BUN Creatinine Estim Creat Clear Calc Est GFR (MDRD) Af Amer Est GFR (MDRD) Non-Af BUN/Creatinine Ratio Glucose Calcium Troponin I B-Natriuretic Peptide 99.6 Urine Color Yellow Urine Clarity Clear Urine pH 6.0 Ur Specific [place] 1.005 Urine Protein 30 H Urine Glucose (UA) Normal Urine Ketones Negative Urine Occult Blood 10 H Urine Nitrite Negative Urine Bilirubin Negative Urine Urobilinogen Normal Ur Leukocyte Esterase 500 H Urine RBC 5-10 SEEN Urine WBC 5-10 SEEN Ur Squamous Epith Cells 0-5 SEEN Urine Bacteria 0 SEEN Urine Mucus 0 SEEN 11/29/18 11/29/18 11/29/18 18:50 21:40 22:11 WBC RBC Hgb Hct MCV MCH MCHC RDW RDW Differential Plt Count MPV Immature Gran % (Auto) Neut % (Auto) Lymph % (Auto) [place] % (Auto) Eos % (Auto) Baso % (Auto) Absolute Neuts (auto) Absolute Lymphs (auto) Total Counted PT INR APTT Specimen Type ART Sample Site L Radial pH 7.29 L Bicarbonate Actual 34.6 H POC Total CO2 37 Base Excess 8 H O2 Saturation 93 L ABG pCO2 71.6 H* ABG pO2 78 Iraj Test POS O2 Delivery Device Nasal Can Liter Flow 3.0 Blood Gas Notified Whom [facility] Blood Gas Notified Time 2200 Sodium Potassium Chloride Carbon Dioxide Anion Gap BUN Creatinine Estim Creat Clear Calc Est GFR (MDRD) Af Amer Est GFR (MDRD) Non-Af BUN/Creatinine Ratio Glucose Calcium Troponin I < 0.015 < 0.015 B-Natriuretic Peptide Urine Color Urine Clarity Urine pH Ur Specific [place] Urine Protein Urine Glucose (UA) Urine Ketones Urine Occult Blood Urine Nitrite Urine Bilirubin Urine Urobilinogen Ur Leukocyte Esterase Urine RBC Urine WBC Ur Squamous Epith Cells Urine Bacteria Urine Mucus 11/30/18 11/30/18 05:25 05:25 WBC 6.8 RBC 5.38 Hgb 14.8 Hct 49.7 H MCV 92.4 MCH 27.5 MCHC 29.8 L RDW 15.0 H RDW Differential 49.7 H Plt Count 210 MPV 9.7 Immature Gran % (Auto) 0.100 Neut % (Auto) 63.3 Lymph % (Auto) 24.9 [place] % (Auto) 9.5 Eos % (Auto) 1.9 Baso % (Auto) 0.3 Absolute Neuts (auto) 4.3 Absolute Lymphs (auto) 1.68 Total Counted Not Reportable PT INR APTT Specimen Type Sample Site pH Bicarbonate Actual POC Total CO2 Base Excess O2 Saturation ABG pCO2 ABG pO2 Iraj Test O2 Delivery Device Liter Flow Blood Gas Notified Whom Blood Gas Notified Time Sodium 143 Potassium 3.8 Chloride 100 Carbon Dioxide 40.0 H Anion Gap 3 L BUN 10 Creatinine 0.71 Estim Creat Clear Calc 67.48 Est GFR (MDRD) Af Amer 108 Est GFR (MDRD) Non-Af 89 BUN/Creatinine Ratio 14.0 Glucose 95 Calcium 8.7 Troponin I B-Natriuretic Peptide Urine Color Urine Clarity Urine pH Ur Specific [place] Urine Protein Urine Glucose (UA) Urine Ketones Urine Occult Blood Urine Nitrite Urine Bilirubin Urine Urobilinogen Ur Leukocyte Esterase Urine RBC Urine WBC Ur Squamous Epith Cells Urine Bacteria Urine Mucus Medical Necessity - Tobacco Use Smoking Status: Current every day smoker Tobacco Use: Cigarettes Assessment/Plan All Active Problems Accelerated hypertension (Acute) Hypoxemia (Acute) Obesity (Acute) Nicotine abuse (Acute) Acute respiratory failure with hypoxia (Acute) 1. Acute hypoxic/hypercapneic respiratory failure - suspect underlying pulmonary htn, cor pulmonale/ acute diastolic CHF. CTA with pulmonary htn, small effusions, recent 10 lb unexplained weight gain over 2 weeks, trace lower extremity edema, increased abdominal bloating. +PND and orthopnea. EKG with sinus arrhythmia. BNP normal. Trop neg x1, cycle. Maintain on tele. Overnight trending pulse ox. Echo pending. -doubt infectious etiology no cough fevers/chills, leukocytosis, no urinary symptoms. -pulmonary agrees pulmonary htn and advised stronger diuresis with iv lasix. -CO2 increasing. Will monitor with increased lasix. -continue bipap qhs. -if off bipap can do trending overnight pulse ox to see if we can approve her for qhs o2 via [place]. -abg with acidosis and CO2 retention, mild hypoxia. 2. Hypertensive emergency - improved with lasix. will trend and consider additional oral agent at dc. 3. Suspected YAMILETH / OHS - feels tired all day, can sleep 24 hours straight, very htn, witnessed apnea, snores, very obese with large neck. Trending overnight pulse ox. Needs o/p sleep study. Consider cpap/bipap trial. 4. 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 5. Nicotine abuse - patch if desired. Increased CO2. Needs o/p PFTs with 40 yr smoking hx - probably has underlying COPD. No wheezing on exam. Diminished lungs throughout. DVT ppx: lovenox This patient was seen by Edgardo Sagastume PA-C under the supervision of Dr. Kam <Dayday Kam - Last Filed: 11/30/18 16:42> Subjective: Seen and examined. She was admitted with CHF symptoms of shortness of breath, dyspnea on exertion, orthopnea and PND. Patient shortness of breath is much improved. Legs swelling also has much improved. - Physical Exam General: Alert, Oriented x3, Cooperative HEENT: Atraumatic, PERRLA, EOMI, Normocephalic Neck: Supple, No JVD, Negative Carotid Bruits Lungs: Diminished, Rales Cardiovascular: Regular rate, Regular Rhythm, Normal S1, Normal S2, No murmurs Abdomen: Bowel Sounds Present, Soft, Non Tender, Non-Distended Extremities: Capillary Refill Less than 3 Seconds, Edema Skin: No rashes, No breakdown Musculoskeletal: No Tenderness to Palpation of Joints or Extremities, Arthritic Changes Neurological: Cranial nerves II-XII grossly intact, Deep Tendon Reflexes 2+/4 and Symmetrical, Neuro grossly intact Psych/Mental Status: Normal Affect, Appropriate Vital Signs Temp Pulse Resp BP Pulse Ox 98.8 F 86 20 H 135/87 H 92 11/30/18 12:00 11/30/18 15:54 11/30/18 15:06 11/30/18 12:00 11/30/18 12:00 Oxygen Flow Rate (L/min) 2 Oxygen Delivery Method Bi-pap Weight: 278 lb 0.046 oz Body Mass Index (BMI) 50.8 Intake and Output for Last 24 Hours 11/28/18 11/29/18 11/30/18 23:59 23:59 23:59 Intake Total 480 / 480 Output Total 1150 / 1150 Balance -670 / -670 Laboratory Tests Past 24 Hrs 11/29/18 11/29/18 11/29/18 15:30 17:16 18:15 WBC RBC Hgb Hct MCV MCH MCHC RDW RDW Differential Plt Count MPV Immature Gran % (Auto) Neut % (Auto) Lymph % (Auto) [place] % (Auto) Eos % (Auto) Baso % (Auto) Absolute Neuts (auto) Absolute Lymphs (auto) Total Counted Specimen Type ART Sample Site L Radial pH 7.30 L Bicarbonate Actual 34.6 H POC Total CO2 37 Base Excess 8 H O2 Saturation 93 L ABG pCO2 69.9 H* ABG pO2 78 Iraj Test O2 Delivery Device Nasal Can Liter Flow 3.0 Blood Gas Notified Whom ED Blood Gas Notified Time Sodium Potassium Chloride Carbon Dioxide Anion Gap BUN Creatinine Estim Creat Clear Calc Est GFR (MDRD) Af Amer Est GFR (MDRD) Non-Af BUN/Creatinine Ratio Glucose Calcium Troponin I B-Natriuretic Peptide 99.6 Urine Color Yellow Urine Clarity Clear Urine pH 6.0 Ur Specific [place] 1.005 Urine Protein 30 H Urine Glucose (UA) Normal Urine Ketones Negative Urine Occult Blood 10 H Urine Nitrite Negative Urine Bilirubin Negative Urine Urobilinogen Normal Ur Leukocyte Esterase 500 H Urine RBC 5-10 SEEN Urine WBC 5-10 SEEN Ur Squamous Epith Cells 0-5 SEEN Urine Bacteria 0 SEEN Urine Mucus 0 SEEN 11/29/18 11/29/18 11/29/18 18:50 21:40 22:11 WBC RBC Hgb Hct MCV MCH MCHC RDW RDW Differential Plt Count MPV Immature Gran % (Auto) Neut % (Auto) Lymph % (Auto) [place] % (Auto) Eos % (Auto) Baso % (Auto) Absolute Neuts (auto) Absolute Lymphs (auto) Total Counted Specimen Type ART Sample Site L Radial pH 7.29 L Bicarbonate Actual 34.6 H POC Total CO2 37 Base Excess 8 H O2 Saturation 93 L ABG pCO2 71.6 H* ABG pO2 78 Iraj Test POS O2 Delivery Device Nasal Can Liter Flow 3.0 Blood Gas Notified Whom HOSP Blood Gas Notified Time 2200 Sodium Potassium Chloride Carbon Dioxide Anion Gap BUN Creatinine Estim Creat Clear Calc Est GFR (MDRD) Af Amer Est GFR (MDRD) Non-Af BUN/Creatinine Ratio Glucose Calcium Troponin I < 0.015 < 0.015 B-Natriuretic Peptide Urine Color Urine Clarity Urine pH Ur Specific [place] Urine Protein Urine Glucose (UA) Urine Ketones Urine Occult Blood Urine Nitrite Urine Bilirubin Urine Urobilinogen Ur Leukocyte Esterase Urine RBC Urine WBC Ur Squamous Epith Cells Urine Bacteria Urine Mucus 11/30/18 11/30/18 05:25 05:25 WBC 6.8 RBC 5.38 Hgb 14.8 Hct 49.7 H MCV 92.4 MCH 27.5 MCHC 29.8 L RDW 15.0 H RDW Differential 49.7 H Plt Count 210 MPV 9.7 Immature Gran % (Auto) 0.100 Neut % (Auto) 63.3 Lymph % (Auto) 24.9 [place] % (Auto) 9.5 Eos % (Auto) 1.9 Baso % (Auto) 0.3 Absolute Neuts (auto) 4.3 Absolute Lymphs (auto) 1.68 Total Counted Not Reportable Specimen Type Sample Site pH Bicarbonate Actual POC Total CO2 Base Excess O2 Saturation ABG pCO2 ABG pO2 Iraj Test O2 Delivery Device Liter Flow Blood Gas Notified Whom Blood Gas Notified Time Sodium 143 Potassium 3.8 Chloride 100 Carbon Dioxide 40.0 H Anion Gap 3 L BUN 10 Creatinine 0.71 Estim Creat Clear Calc 67.48 Est GFR (MDRD) Af Amer 108 Est GFR (MDRD) Non-Af 89 BUN/Creatinine Ratio 14.0 Glucose 95 Calcium 8.7 Troponin I B-Natriuretic Peptide Urine Color Urine Clarity Urine pH Ur Specific [place] Urine Protein Urine Glucose (UA) Urine Ketones Urine Occult Blood Urine Nitrite Urine Bilirubin Urine Urobilinogen Ur Leukocyte Esterase Urine RBC Urine WBC Ur Squamous Epith Cells Urine Bacteria Urine Mucus Assessment/Plan This patient was seen in conjunction with Edgardo MONTES DE OCA. I have independently interviewed and examined the patient and reviewed pertinent history, examination findings, laboratory and plan of management. I have reviewed the note and agree with the documented findings with the few additional points. In brief, patient is admitted for acute hypoxic/hypercarbic respiratory failure most probably secondary to acute heart failure with preserved EF and pulmonary hypertension: Echo was done shows normal LV size and systolic function with EF 65%. Impaired relaxation of left ventricle. Normal RV size and systolic function. Normal tricuspid valve, RVSP 39 mmHg. Left atrium mildly enlarged. Trivial MR and TR. Patient also had hypertensive emergency. Patient seen by lime vat tender and increase Lasix to 40 mg 3 times daily. Patient also has other comorbidities including morbid obesity, nicotine use. Denies previous history of coronary artery disease or stent. I have discussed my assessment with Edgardo MONTES DE OCA and orders have been reviewed. Code Visit Inpatient E&M: 95464 Subs Hosp L3
[2018-11-30] MEDS: Furosemide 40 MG/4 ML Vial IV ×2 (13:54→21:23)
--- NOTE | 2018-11-30 15:47 | CASEMGMT ---
This ELIE ESQUIVEL received a message from Thao ESQUIVEL at [facility] stating that pt does have lower level benefits for rehab, SNF, HHC, etc. and states that she can be reached at ext [phone], if any assistance she can provide. Lui DELGADILLO CM
[2018-11-30] MEDS: Metoprolol Tartrate 25 MG Tablet 12.5 MG PO (21:22)
[2018-12-01] VITALS (19 sets, daily range): BP systolic 112–136; BP diastolic 46–66; PULSE 72–85; RESP 12–20; TEMP 36.7–36.9; O2SAT 87–98
[2018-12-01] MEDS: Furosemide 40 MG/4 ML Vial IV ×3 (05:15→21:29)
[2018-12-01] MEDS: 0.9% NaCl Peripheral Flush Adult/Peds IV ×3 (05:16→21:23)
[2018-12-01] MEDS: Heparin Injection (Vial) 5,000 UNIT/ML VIAL 5000 UNIT SC ×3 (05:20→21:27)
[2018-12-01 06:14] LABS: Anion Gap 6 (5-15); BUN 15 mg/dL (7-18); BUN/Creat Ratio 19.1 RATIO (10-20); Calcium,Total 8.6 mg/dL (8.5-10.1); Chloride 97 mmol/L (98-107); Creatinine, Serum 0.78 mg/dL (0.55-1.02); EST Glomerular Filtration Rate 80 mL/min (>60); Est Glom Filt Rate - Afr Amer 96 mL/min (>60); Estimated Creatinine Clearance 61.42 ml/min; Glucose 101 mg/dL (74-106); Potassium 3.9 mmol/L (3.5-5.1); Sodium Level 142 mmol/L (136-145)
[2018-12-01] MEDS: Ipratropium/Albuterol Sulfate 3 ML AMPUL.NEB INHALATION ×4 (07:08→19:02)
--- NOTE | 2018-12-01 07:40 | PCM.PN.PUL ---
Patient Problems: Active and Suspected Problems Accelerated hypertension (Acute) Hypoxemia (Acute) Obesity (Acute) Nicotine abuse (Acute) Acute respiratory failure with hypoxia (Acute) Subjective: The patient was seen and examined at the bedside this morning. Events from the last 24 hours have been reviewed. The patient is currently afebrile, hemodynamically stable and maintaining appropriate oxygen saturations on 2 L/min via nasal cannula. The patient was documented to be overall net -3.6 L yesterday. Breathing has improved. Objective: The patient's most recent lab work, culture data and imaging studies have all been personally reviewed. Surface echocardiogram revealed evidence of diastolic dysfunction with an ejection fraction of 65%. Right ventricular systolic pressure is estimated to be 39 mmHg. - Physical Exam General: Alert, Oriented x3, Cooperative, No apparent distress, - - Sitting in bedside recliner. HEENT: Atraumatic, PERRLA, Normocephalic Oral: No Gingival or Mucosal Lesions/ Ulcerations Neck: Supple, No Nodes, Trachea Midline, - - Large neck circumference with redundant soft tissue. Lungs: No rhonchi, No wheeze, No rales, Diminished Cardiovascular: Regular rate, Regular Rhythm, No murmurs Abdomen: Bowel Sounds Present, Soft, Non Tender, Obese Extremities: No clubbing, No cyanosis, Edema Skin: No breakdown Musculoskeletal: No Tenderness to Palpation of Joints or Extremities, No Muscle Wasting Lymphatic: No Cervical, Supraclavicular, or Inguinal Adenopathy Neurological: Cranial nerves II-XII grossly intact, Neuro grossly intact Psych/Mental Status: Alert and oriented to time, place, person, mood and affect Vital Signs Temp Pulse Resp BP Pulse Ox 98.1 F 81 18 112/58 L 93 12/01/18 03:20 12/01/18 07:09 12/01/18 07:09 12/01/18 03:20 12/01/18 07:09 Oxygen Flow Rate (L/min) 2 Oxygen Delivery Method Nasal Cannula Weight: 267 lb 6.731 oz Body Mass Index (BMI) 50.8 Intake and Output for Last 24 Hours 11/29/18 11/30/18 12/01/18 23:59 23:59 23:59 Intake Total 960 / 960 120 / 120 Output Total 4575 / 4575 250 / 250 Balance -3615 / -3615 -130 / -130 Laboratory Tests Past 24 Hrs 12/01/18 05:30 Sodium 142 Potassium 3.9 Chloride 97 L Carbon Dioxide 39.0 H Anion Gap 6 BUN 15 Creatinine 0.78 Estim Creat Clear Calc 61.42 Est GFR (MDRD) Af Amer 96 Est GFR (MDRD) Non-Af 80 BUN/Creatinine Ratio 19.1 Glucose 101 Calcium 8.6 Labs (Last 48 Hours) 11/29/18 11/29/18 11/29/18 15:30 15:30 15:30 WBC 8.4 RBC 5.49 H Hgb 15.6 H Hct 50.4 H MCV 91.8 MCH 28.4 MCHC 31.0 L RDW 14.6 RDW Differential 49.0 H Plt Count 215 MPV 9.6 Immature Gran % (Auto) 0.100 Neut % (Auto) 67.7 Lymph % (Auto) 21.5 [place] % (Auto) 8.4 Eos % (Auto) 1.8 Baso % (Auto) 0.5 Absolute Neuts (auto) 5.7 Absolute Lymphs (auto) 1.80 Total Counted Not Reportable PT 13.1 INR 1.0 APTT 29.7 Specimen Type Sample Site pH Bicarbonate Actual POC Total CO2 Base Excess O2 Saturation ABG pCO2 ABG pO2 Iraj Test O2 Delivery Device Liter Flow Blood Gas Notified Whom Blood Gas Notified Time Sodium 140 Potassium 3.6 Chloride 101 Carbon Dioxide 38.0 H Anion Gap 1 L BUN 11 Creatinine 0.82 Estim Creat Clear Calc 58.42 Est GFR (MDRD) Af Amer 91 Est GFR (MDRD) Non-Af 75 BUN/Creatinine Ratio 13.4 Glucose 101 Calcium 8.7 Troponin I < 0.015 B-Natriuretic Peptide Urine Color Urine Clarity Urine pH Ur Specific [place] Urine Protein Urine Glucose (UA) Urine Ketones Urine Occult Blood Urine Nitrite Urine Bilirubin Urine Urobilinogen Ur Leukocyte Esterase Urine RBC Urine WBC Ur Squamous Epith Cells Urine Bacteria Urine Mucus 11/29/18 11/29/18 11/29/18 15:30 17:16 18:15 WBC RBC Hgb Hct MCV MCH MCHC RDW RDW Differential Plt Count MPV Immature Gran % (Auto) Neut % (Auto) Lymph % (Auto) [place] % (Auto) Eos % (Auto) Baso % (Auto) Absolute Neuts (auto) Absolute Lymphs (auto) Total Counted PT INR APTT Specimen Type ART Sample Site L Radial pH 7.30 L Bicarbonate Actual 34.6 H POC Total CO2 37 Base Excess 8 H O2 Saturation 93 L ABG pCO2 69.9 H* ABG pO2 78 Iraj Test O2 Delivery Device Nasal Can Liter Flow 3.0 Blood Gas Notified Whom Blood Gas Notified Time Sodium Potassium Chloride Carbon Dioxide Anion Gap BUN Creatinine Estim Creat Clear Calc Est GFR (MDRD) Af Amer Est GFR (MDRD) Non-Af BUN/Creatinine Ratio Glucose Calcium Troponin I B-Natriuretic Peptide 99.6 Urine Color Yellow Urine Clarity Clear Urine pH 6.0 Ur Specific [place] 1.005 Urine Protein 30 H Urine Glucose (UA) Normal Urine Ketones Negative Urine Occult Blood 10 H Urine Nitrite Negative Urine Bilirubin Negative Urine Urobilinogen Normal Ur Leukocyte Esterase 500 H Urine RBC 5-10 SEEN Urine WBC 5-10 SEEN Ur Squamous Epith Cells 0-5 SEEN Urine Bacteria 0 SEEN Urine Mucus 0 SEEN 11/29/18 11/29/18 11/29/18 18:50 21:40 22:11 WBC RBC Hgb Hct MCV MCH MCHC RDW RDW Differential Plt Count MPV Immature Gran % (Auto) Neut % (Auto) Lymph % (Auto) [place] % (Auto) Eos % (Auto) Baso % (Auto) Absolute Neuts (auto) Absolute Lymphs (auto) Total Counted PT INR APTT Specimen Type ART Sample Site L Radial pH 7.29 L Bicarbonate Actual 34.6 H POC Total CO2 37 Base Excess 8 H O2 Saturation 93 L ABG pCO2 71.6 H* ABG pO2 78 Iraj Test POS O2 Delivery Device Nasal Can Liter Flow 3.0 Blood Gas Notified Whom [facility] Blood Gas Notified Time 2200 Sodium Potassium Chloride Carbon Dioxide Anion Gap BUN Creatinine Estim Creat Clear Calc Est GFR (MDRD) Af Amer Est GFR (MDRD) Non-Af BUN/Creatinine Ratio Glucose Calcium Troponin I < 0.015 < 0.015 B-Natriuretic Peptide Urine Color Urine Clarity Urine pH Ur Specific [place] Urine Protein Urine Glucose (UA) Urine Ketones Urine Occult Blood Urine Nitrite Urine Bilirubin Urine Urobilinogen Ur Leukocyte Esterase Urine RBC Urine WBC Ur Squamous Epith Cells Urine Bacteria Urine Mucus 11/30/18 11/30/18 12/01/18 05:25 05:25 05:30 WBC 6.8 RBC 5.38 Hgb 14.8 Hct 49.7 H MCV 92.4 MCH 27.5 MCHC 29.8 L RDW 15.0 H RDW Differential 49.7 H Plt Count 210 MPV 9.7 Immature Gran % (Auto) 0.100 Neut % (Auto) 63.3 Lymph % (Auto) 24.9 [place] % (Auto) 9.5 Eos % (Auto) 1.9 Baso % (Auto) 0.3 Absolute Neuts (auto) 4.3 Absolute Lymphs (auto) 1.68 Total Counted Not Reportable PT INR APTT Specimen Type Sample Site pH Bicarbonate Actual POC Total CO2 Base Excess O2 Saturation ABG pCO2 ABG pO2 Iraj Test O2 Delivery Device Liter Flow Blood Gas Notified Whom Blood Gas Notified Time Sodium 143 142 Potassium 3.8 3.9 Chloride 100 97 L Carbon Dioxide 40.0 H 39.0 H Anion Gap 3 L 6 BUN 10 15 Creatinine 0.71 0.78 Estim Creat Clear Calc 67.48 61.42 Est GFR (MDRD) Af Amer 108 96 Est GFR (MDRD) Non-Af 89 80 BUN/Creatinine Ratio 14.0 19.1 Glucose 95 101 Calcium 8.7 8.6 Troponin I B-Natriuretic Peptide Urine Color Urine Clarity Urine pH Ur Specific [place] Urine Protein Urine Glucose (UA) Urine Ketones Urine Occult Blood Urine Nitrite Urine Bilirubin Urine Urobilinogen Ur Leukocyte Esterase Urine RBC Urine WBC Ur Squamous Epith Cells Urine Bacteria Urine Mucus Clinical Impression(s) from Imaging Studies Chest CTA 11/29/18 15:18 IMPRESSION: No pulmonary embolism or arterial dissection. The main pulmonary artery is dilated, this may represent pulmonary artery hypertension. Trace right pleural effusion and small pericardial effusion. Mild cardiomegaly. Electronically Signed: John Barbour, at 16:56 EDT Tel , Service support , Medical Necessity - Tobacco Use Smoking Status: Current every day smoker Tobacco Use: Cigarettes Assessment/Plan All Active Problems Accelerated hypertension (Acute) Hypoxemia (Acute) Obesity (Acute) Nicotine abuse (Acute) Acute respiratory failure with hypoxia (Acute) RECOMMENDATIONS: 1. Continue diuretic regimen as ordered. Consider transitioning to p.o. Lasix regimen. 2. Wean supplemental oxygen as tolerated. 3. Encourage incentive spirometer use and mobilize patient as tolerated. 4. Encourage smoking cessation. 5. Perform walking oximetry study prior to consideration for discharge from the hospital. 6. Outpatient pulmonary follow-up within 2 weeks of discharge so that baseline PFTs and polysomnogram can be obtained. IMPRESSIONS: 1. Acute hypoxic respiratory failure Patient did receive BiPAP transiently, but appears to be doing well on nasal cannula at this time. Clinical suspicion for multifactorial hypoxic respiratory failure. Patient does have a long smoking history and may have an element of COPD. Patient does have compensated CO2 retention on ABG. Would need a room air ABG to see if patient has an element of obesity hypoventilation syndrome. Patient also likely has untreated obstructive sleep apnea. In addition, the patient's echocardiogram did reveal diastolic dysfunction and pulmonary hypertension. She is improved clinically with the use of diuretics. Consider transitioning from IV Lasix to p.o. regimen. Continue to wean supplemental oxygen. Perform walking oximetry study prior to consideration for discharge. Please have the patient follow-up in the pulmonary medicine clinic within 2 weeks of discharge. 2. Hypertensive emergency Clinical suspicion for untreated hypertension. Patient did respond to PRN medications. Will attempt to normalize fluid status. Continue to monitor closely. Given morbid obesity, this could result in worsening of diastolic dysfunction 3. Morbid obesity/nicotine abuse/lack of PCP Complicates care, management, recovery and prognosis. Patient should be established/reestablished with PCP at discharge. Continue with nicotine patch. Encourage weight loss. This note was generated with [employer] dictation software. It may contain incorrect words, spelling, and punctuation that were not noted in checking the note before signing. Code Visit Inpatient E&M: 52081 Subs Hosp L2
[2018-12-01] MEDS: Metoprolol Tartrate 25 MG Tablet 12.5 MG PO ×2 (09:20→21:25)
--- NOTE | 2018-12-01 13:46 | PCM.PROGNOTE ---
<Edgardo Sagastume - Last Filed: 12/01/18 13:46> Patient Problems: Active and Suspected Problems Accelerated hypertension (Acute) Hypoxemia (Acute) Obesity (Acute) Nicotine abuse (Acute) Acute respiratory failure with hypoxia (Acute) Subjective: Still SOB at rest. Attempted to wean O2 but patient hypoxic in the 80s on room air at rest. Resumed O2. Did again use bipap last night. LE edema persistent despite large volume diuresis. No CP/heaviness/tightness. Nonproductive cough. No fever/chills. - Physical Exam General: Alert, Oriented x3, Cooperative HEENT: Atraumatic, PERRLA, EOMI, Normocephalic Neck: Supple, No JVD, Negative Carotid Bruits Lungs: Diminished, Rales Cardiovascular: Regular rate, No murmurs Abdomen: Bowel Sounds Present, Soft, Non Tender, Obese Extremities: Capillary Refill Less than 3 Seconds, Edema Skin: No rashes, No breakdown Musculoskeletal: No Tenderness to Palpation of Joints or Extremities Neurological: Cranial nerves II-XII grossly intact Psych/Mental Status: Normal Affect, Appropriate, Alert and oriented to time, place, person, mood and affect Vital Signs Temp Pulse Resp BP Pulse Ox 98.0 F 85 17 136/63 H 92 12/01/18 09:20 12/01/18 11:12 12/01/18 11:12 12/01/18 09:20 12/01/18 11:12 Oxygen Flow Rate (L/min) [ 3 AMBULATION with Oxygen] Oxygen Flow Rate (L/min) 2 Oxygen Delivery Method Nasal Cannula Weight: 267 lb 6.731 oz Body Mass Index (BMI) 50.8 Intake and Output for Last 24 Hours 11/29/18 11/30/18 12/01/18 23:59 23:59 23:59 Intake Total 960 / 960 800 / 800 Output Total 4575 / 4575 1450 / 1450 Balance -3615 / -3615 -650 / -650 Laboratory Tests Past 24 Hrs 12/01/18 05:30 Sodium 142 Potassium 3.9 Chloride 97 L Carbon Dioxide 39.0 H Anion Gap 6 BUN 15 Creatinine 0.78 Estim Creat Clear Calc 61.42 Est GFR (MDRD) Af Amer 96 Est GFR (MDRD) Non-Af 80 BUN/Creatinine Ratio 19.1 Glucose 101 Calcium 8.6 Medical Necessity - Tobacco Use Smoking Status: Current every day smoker Tobacco Use: Cigarettes Assessment/Plan All Active Problems Accelerated hypertension (Acute) Hypoxemia (Acute) Obesity (Acute) Nicotine abuse (Acute) Acute respiratory failure with hypoxia (Acute) 1. Acute hypoxic/hypercapneic respiratory failure - suspect underlying pulmonary htn, cor pulmonale/ acute diastolic CHF. CTA with pulmonary htn, small effusions, recent 10 lb unexplained weight gain over 2 weeks, lower extremity edema, increased abdominal bloating. +PND and orthopnea. EKG with sinus arrhythmia. BNP normal. Trop neg x1, cycle. Maintain on tele. Overnight trending pulse ox if off bipap tonight to get home qhs o2. Echo with RVSP 38mmHg and EF 65%. -continue IV lasix overnight. has not reached dry weight 2. Hypertensive emergency - resolved. mildly htn. 3. Suspected YAMILETH / OHS - feels tired all day, can sleep 24 hours straight, very htn, witnessed apnea, snores, very obese with large neck. Trending overnight pulse ox. Needs o/p sleep study. Doing well with bipap 4. 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 5. Nicotine abuse - oatch. DVT ppx: lovenox This patient was seen by Edgardo Sagastume PA-C under the supervision of Dr. Kam <Dayday Kam - Last Filed: 12/01/18 14:19> Subjective: Patient is mild short of breath at rest. No tachycardia or tachypnea. Blood pressure is controlled. Pulse ox 92% on 2 L of oxygen. - Physical Exam General: Alert, Oriented x3, Cooperative HEENT: Atraumatic, PERRLA, EOMI, Normocephalic Neck: Supple, No JVD, Negative Carotid Bruits Lungs: No wheeze, Diminished, Rales Cardiovascular: Regular rate, Regular Rhythm, Normal S1, Normal S2, No murmurs Abdomen: Bowel Sounds Present, Soft, Non Tender, Non-Distended, Obese Extremities: Capillary Refill Less than 3 Seconds, Edema Skin: No rashes, No breakdown Musculoskeletal: No Tenderness to Palpation of Joints or Extremities, Arthritic Changes Neurological: Cranial nerves II-XII grossly intact, Deep Tendon Reflexes 2+/4 and Symmetrical, Neuro grossly intact, Motor Exam 5/5 strength throughout Psych/Mental Status: Normal Affect, Appropriate Vital Signs Temp Pulse Resp BP Pulse Ox 98.0 F 85 17 136/63 H 92 12/01/18 09:20 12/01/18 11:12 12/01/18 11:12 12/01/18 09:20 12/01/18 11:12 Oxygen Flow Rate (L/min) [ 3 AMBULATION with Oxygen] Oxygen Flow Rate (L/min) 2 Oxygen Delivery Method Nasal Cannula Weight: 267 lb 6.731 oz Body Mass Index (BMI) 50.8 Intake and Output for Last 24 Hours 11/29/18 11/30/18 12/01/18 23:59 23:59 23:59 Intake Total 960 / 960 800 / 800 Output Total 4575 / 4575 1450 / 1450 Balance -3615 / -3615 -650 / -650 Laboratory Tests Past 24 Hrs 12/01/18 05:30 Sodium 142 Potassium 3.9 Chloride 97 L Carbon Dioxide 39.0 H Anion Gap 6 BUN 15 Creatinine 0.78 Estim Creat Clear Calc 61.42 Est GFR (MDRD) Af Amer 96 Est GFR (MDRD) Non-Af 80 BUN/Creatinine Ratio 19.1 Glucose 101 Calcium 8.6 Assessment/Plan This patient was seen in conjunction with Edgardo MONTES DE OCA. I have independently interviewed and examined the patient and reviewed pertinent history, examination findings, laboratory and plan of management. I have reviewed the note and agree with the documented findings with the few additional points. In brief, patient is admitted for acute hypoxic/hypercarbic respiratory failure most probably secondary to acute heart failure with preserved EF and pulmonary hypertension: Echo was done shows normal LV size and systolic function with EF 65%. Impaired relaxation of left ventricle. Normal RV size and systolic function. Normal tricuspid valve, RVSP 39 mmHg. Left atrium mildly enlarged. Trivial MR and TR. Patient also had hypertensive emergency. Patient seen by sales representative gas service and increase Lasix to 40 mg 3 times daily. Blood pressure is controlled. Patient also has other comorbidities including morbid obesity, nicotine use and suspected obstructive sleep apnea/obesity hypoventilation syndrome. Denies previous history of coronary artery disease or stent. Will need outpatient polysomnography I have discussed my assessment with Edgardo MONTES DE OCA and orders have been reviewed. Code Visit Inpatient E&M: 84775 Subs Hosp L3
--- NOTE | 2018-12-01 13:49 | PN_ITS ---
<Edgardo Sagastume - Last Filed: 12/01/18 13:46> Patient Problems: Active and Suspected Problems Accelerated hypertension (Acute) Hypoxemia (Acute) Obesity (Acute) Nicotine abuse (Acute) Acute respiratory failure with hypoxia (Acute) Subjective: Still SOB at rest. Attempted to wean O2 but patient hypoxic in the 80s on room air at rest. Resumed O2. Did again use bipap last night. LE edema persistent despite large volume diuresis. No CP/heaviness/tightness. Nonproductive cough. No fever/chills. - Physical Exam General: Alert, Oriented x3, Cooperative HEENT: Atraumatic, PERRLA, EOMI, Normocephalic Neck: Supple, No JVD, Negative Carotid Bruits Lungs: Diminished, Rales Cardiovascular: Regular rate, No murmurs Abdomen: Bowel Sounds Present, Soft, Non Tender, Obese Extremities: Capillary Refill Less than 3 Seconds, Edema Skin: No rashes, No breakdown Musculoskeletal: No Tenderness to Palpation of Joints or Extremities Neurological: Cranial nerves II-XII grossly intact Psych/Mental Status: Normal Affect, Appropriate, Alert and oriented to time, place, person, mood and affect Vital Signs Temp Pulse Resp BP Pulse Ox 98.0 F 85 17 136/63 H 92 12/01/18 09:20 12/01/18 11:12 12/01/18 11:12 12/01/18 09:20 12/01/18 11:12 Oxygen Flow Rate (L/min) [ 3 AMBULATION with Oxygen] Oxygen Flow Rate (L/min) 2 Oxygen Delivery Method Nasal Cannula Weight: 267 lb 6.731 oz Body Mass Index (BMI) 50.8 Intake and Output for Last 24 Hours 11/29/18 11/30/18 12/01/18 23:59 23:59 23:59 Intake Total 960 / 960 800 / 800 Output Total 4575 / 4575 1450 / 1450 Balance -3615 / -3615 -650 / -650 Laboratory Tests Past 24 Hrs 12/01/18 05:30 Sodium 142 Potassium 3.9 Chloride 97 L Carbon Dioxide 39.0 H Anion Gap 6 BUN 15 Creatinine 0.78 Estim Creat Clear Calc 61.42 Est GFR (MDRD) Af Amer 96 Est GFR (MDRD) Non-Af 80 BUN/Creatinine Ratio 19.1 Glucose 101 Calcium 8.6 Medical Necessity - Tobacco Use Smoking Status: Current every day smoker Tobacco Use: Cigarettes Assessment/Plan All Active Problems Accelerated hypertension (Acute) Hypoxemia (Acute) Obesity (Acute) Nicotine abuse (Acute) Acute respiratory failure with hypoxia (Acute) 1. Acute hypoxic/hypercapneic respiratory failure - suspect underlying pulmonary htn, cor pulmonale/ acute diastolic CHF. CTA with pulmonary htn, small effusions, recent 10 lb unexplained weight gain over 2 weeks, lower extremity edema, increased abdominal bloating. +PND and orthopnea. EKG with sinus arrhythmia. BNP normal. Trop neg x1, cycle. Maintain on tele. Overnight tr ending pulse ox if off bipap tonight to get home qhs o2. Echo with RVSP 38mmHg and EF 65%. -continue IV lasix overnight. has not reached dry weight 2. Hypertensive emergency - resolved. mildly htn. 3. Suspected YAMILETH / OHS - feels tired all day, can sleep 24 hours straight, very htn, witnessed apnea, snores, very obese with large neck. Trending overnight pulse ox. Needs o/p sleep study. Doing well with bipap 4. 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 5. Nicotine abuse - oatch. DVT ppx: lovenox This patient was seen by Edgardo Sagastume PA-C under the supervision of Dr. Kam <Dayday Kam - Last Filed: 12/01/18 14:19> Subjective: Patient is mild short of breath at rest. No tachycardia or tachypnea. Blood pressure is controlled. Pulse ox 92% on 2 L of oxygen. - Physical Exam General: Alert, Oriented x3, Cooperative HEENT: Atraumatic, PERRLA, EOMI, Normocephalic Neck: Supple, No JVD, Negative Carotid Bruits Lungs: No wheeze, Diminished, Rales Cardiovascular: Regular rate, Regular Rhythm, Normal S1, Normal S2, No murmurs Abdomen: Bowel Sounds Present, Soft, Non Tender, Non-Distended, Obese Extremities: Capillary Refill Less than 3 Seconds, Edema Skin: No rashes, No breakdown Musculoskeletal: No Tenderness to Palpation of Joints or Extremities, Arthritic Changes Neurological: Cranial nerves II-XII grossly intact, Deep Tendon Reflexes 2+/4 and Symmetrical, Neuro grossly intact, Motor Exam 5/5 strength throughout Psych/Mental Status: Normal Affect, Appropriate Vital Signs Temp Pulse Resp BP Pulse Ox 98.0 F 85 17 136/63 H 92 12/01/18 09:20 12/01/18 11:12 12/01/18 11:12 12/01/18 09:20 12/01/18 11:12 Oxygen Flow Rate (L/min) [ 3 AMBULATION with Oxygen] Oxygen Flow Rate (L/min) 2 Oxygen Delivery Method Nasal Cannula Weight: 267 lb 6.731 oz Body Mass Index (BMI) 50.8 Intake and Output for Last 24 Hours 11/29/18 11/30/18 12/01/18 23:59 23:59 23:59 Intake Total 960 / 960 800 / 800 Output Total 4575 / 4575 1450 / 1450 Balance -3615 / -3615 -650 / -650 Laboratory Tests Past 24 Hrs 12/01/18 05:30 Sodium 142 Potassium 3.9 Chloride 97 L Carbon Dioxide 39.0 H Anion Gap 6 BUN 15 Creatinine 0.78 Estim Creat Clear Calc 61.42 Est GFR (MDRD) Af Amer 96 Est GFR (MDRD) Non-Af 80 BUN/Creatinine Ratio 19.1 Glucose 101 Calcium 8.6 Assessment/Plan This patient was seen in conjunction with Edgardo MONTES DE OCA. I have independently interviewed and examined the patient and reviewed pertinent history, examination findings, laboratory and plan of management. I have reviewed the note and agree with the documented findings with the few additional points. In brief, patient is admitted for acute hypoxic/hypercarbic respiratory failure most probably secondary to acute heart failure with preserved EF and pulmonary hypertension: Echo was done shows normal LV size and systolic function with EF 65%. Impaired relaxation of left ventricle. Normal RV size and systolic function. Normal tricuspid valve, RVSP 39 mmHg. Left atrium mildly enlarged. Trivial MR and TR. Patient also had hypertensive emergency. Patient seen by legal examiner and increase Lasix to 40 mg 3 times daily. Blood pressure is controlled. Patient also has other comorbidities including morbid obesity, nicotine use and suspected obstructive sleep apnea/obesity hypoventilation syndrome. Denies previous history of coronary artery disease or stent. Will need outpatient polysomnography I have discussed my assessment with Edgardo MONTES DE OCA and orders have been reviewed. Code Visit Inpatient E&M: 62634 Subs Hosp L3
--- NOTE | 2018-12-01 14:46 | NURSING ---
1435 This RN assuming care of pt at this time.
[2018-12-01] MEDS: guaiFENesin 1,200 MG Tablet 1200 MG PO (21:26)
[2018-12-02] VITALS (12 sets, daily range): BP systolic 132–136; BP diastolic 51–76; PULSE 65–82; RESP 12–19; TEMP 36.6–36.7; O2SAT 86–97
[2018-12-02] MEDS: Heparin Injection (Vial) 5,000 UNIT/ML VIAL 5000 UNIT SC (05:28)
[2018-12-02] MEDS: Furosemide 40 MG/4 ML Vial IV (05:29)
[2018-12-02] MEDS: Ipratropium/Albuterol Sulfate 3 ML AMPUL.NEB INHALATION ×2 (06:36→11:20)
--- NOTE | 2018-12-02 07:32 | PCM.PN.PUL ---
Subjective: The patient was seen and examined at the bedside this morning. Events from the last 24 hours have been reviewed. The patient is currently afebrile, hemodynamically stable and maintaining appropriate oxygen saturations on 2 L/min via nasal cannula. The patient was continued on IV Lasix 3 times daily yesterday. She is currently documented to be overall net -5.4 L for the admission. Objective: The patient's most recent lab work, culture data and imaging studies have all been personally reviewed. Surface echocardiogram revealed evidence of diastolic dysfunction with an ejection fraction of 65%. Right ventricular systolic pressure is estimated to be 39 mmHg. - Physical Exam General: Alert, Oriented x3, Cooperative, No apparent distress HEENT: Atraumatic, PERRLA, Normocephalic Oral: No Gingival or Mucosal Lesions/ Ulcerations Neck: Supple, No Nodes, Trachea Midline Lungs: No rhonchi, No wheeze, Diminished, Rales Cardiovascular: Regular rate, Regular Rhythm, Normal S1, Normal S2, No murmurs Abdomen: Bowel Sounds Present, Soft, Non Tender, Obese Extremities: No clubbing, No cyanosis, Edema Skin: No breakdown Musculoskeletal: No Tenderness to Palpation of Joints or Extremities, No Muscle Wasting Lymphatic: No Cervical, Supraclavicular, or Inguinal Adenopathy Neurological: Cranial nerves II-XII grossly intact, Neuro grossly intact Psych/Mental Status: Alert and oriented to time, place, person, mood and affect Vital Signs Temp Pulse Resp BP Pulse Ox 97.8 F 80 17 132/51 H 94 12/02/18 03:20 12/02/18 07:00 12/02/18 03:37 12/02/18 03:20 12/02/18 03:37 Oxygen Flow Rate (L/min) [ 3 AMBULATION with Oxygen] Oxygen Flow Rate (L/min) 2 Oxygen Delivery Method Bi-pap Weight: 269 lb 10.005 oz Body Mass Index (BMI) 50.8 Intake and Output for Last 24 Hours 11/30/18 12/01/18 12/02/18 23:59 23:59 23:59 Intake Total 960 / 960 1400 / 1400 120 / 120 Output Total 4575 / 4575 2470 / 2470 850 / 850 Balance -3615 / -3615 -1070 / -1070 -730 / -730 Labs (Last 48 Hours) 12/01/18 05:30 Sodium 142 Potassium 3.9 Chloride 97 L Carbon Dioxide 39.0 H Anion Gap 6 BUN 15 Creatinine 0.78 Estim Creat Clear Calc 61.42 Est GFR (MDRD) Af Amer 96 Est GFR (MDRD) Non-Af 80 BUN/Creatinine Ratio 19.1 Glucose 101 Calcium 8.6 Clinical Impression(s) from Imaging Studies Chest CTA 11/29/18 15:18 IMPRESSION: No pulmonary embolism or arterial dissection. The main pulmonary artery is dilated, this may represent pulmonary artery hypertension. Trace right pleural effusion and small pericardial effusion. Mild cardiomegaly. Electronically Signed: John Barbour, at 16:56 EDT Tel , Service support , Medical Necessity - Tobacco Use Smoking Status: Current every day smoker Tobacco Use: Cigarettes Assessment/Plan All Active Problems Accelerated hypertension (Acute) Hypoxemia (Acute) Obesity (Acute) Nicotine abuse (Acute) Acute respiratory failure with hypoxia (Acute) RECOMMENDATIONS: 1. Transition to p.o. Lasix regimen. 2. Wean supplemental oxygen as tolerated. 3. Encourage incentive spirometer use and mobilize patient as tolerated. 4. Encourage smoking cessation. 5. Perform walking oximetry study prior to consideration for discharge from the hospital. 6. Outpatient pulmonary follow-up within 2 weeks of discharge so that baseline PFTs and polysomnogram can be obtained. IMPRESSIONS: 1. Acute hypoxic respiratory failure Patient did receive BiPAP transiently, but appears to be doing well on nasal cannula at this time. Clinical suspicion for multifactorial hypoxic respiratory failure. Patient does have a long smoking history and may have an element of COPD. Patient does have compensated CO2 retention on ABG. Would need a room air ABG to see if patient has an element of obesity hypoventilation syndrome. Patient also likely has untreated obstructive sleep apnea. In addition, the patient's echocardiogram did reveal diastolic dysfunction and pulmonary hypertension. She is improved clinically with the use of diuretics. Recommend transitioning from IV Lasix to p.o. regimen. Continue to wean supplemental oxygen. Perform walking oximetry study prior to consideration for discharge. Please have the patient follow-up in the pulmonary medicine clinic within 2 weeks of discharge. 2. Hypertensive emergency Clinical suspicion for untreated hypertension. Patient did respond to PRN medications. Will attempt to normalize fluid status. Continue to monitor closely. Given morbid obesity, this could result in worsening of diastolic dysfunction 3. Morbid obesity/nicotine abuse/lack of PCP Complicates care, management, recovery and prognosis. Patient should be established/reestablished with PCP at discharge. Continue with nicotine patch. Encourage weight loss. This note was generated with [employer] dictation software. It may contain incorrect words, spelling, and punctuation that were not noted in checking the note before signing. Code Visit Inpatient E&M: 58777 Subs Hosp L2
[2018-12-02] MEDS: Metoprolol Tartrate 25 MG Tablet 12.5 MG PO (09:44)
[2018-12-02] MEDS: guaiFENesin 1,200 MG Tablet 1200 MG PO (09:45)
--- NOTE | 2018-12-02 11:17 | PCM.DC ---
- Discharge Diagnoses Current Active Problems: Current Active and Chronic Problems Accelerated hypertension (Acute) Hypoxemia (Acute) HTN (hypertension) (Chronic) Obesity (Acute) Nicotine abuse (Acute) Acute respiratory failure with hypoxia (Acute) You will use the following diet at home:: Cardiac Your food should be the consistency of: Regular Discharge Activity: May Not Drive - FOR 1 Week Call your doctor if you observe: Fever of 101 or Higher, Inability to have a bowel movement, Using more than one pad per hour, Shortness of breath, Dizziness, Fainting spells, Swelling in the ankles, Chest pain, Increased palpitations (irregular heartbeat), Calf discomfort Additional Instructions: Will need outpatient polysomnography, sleep study and PFT. Discharge on oxygen 2 L/m Allergies/Adverse Reactions: Allergies No Known Allergies Allergy (Verified 11/29/18 14:58) Medications to take at Discharge Furosemide [Lasix] 40 mg PO BID #60 tablet 12/02/18 Guaifenesin [Mucinex] 1,200 mg PO BID #14 tablet 12/02/18 Ipratropium/Albuterol Sulfate [Duoneb] 3 ml INHALATION Q4H PRN #30 ampul.neb 12/02/18 Metoprolol Tartrate [Lopressor (beta barak)] 12.5 mg PO BID #30 tablet 12/02/18 Nicotine [Nicoderm] 14 mg TRANSDERM. DAILY #30 patch 12/02/18 The following prescriptions were given: Ipratropium/Albuterol Sulfate [Duoneb] 3 ml INHALATION Q4H PRN #30 ampul.neb PRN Reason: Sob &/Or Wheezing Nicotine [Nicoderm] 14 mg TRANSDERM. DAILY #30 patch Furosemide [Lasix] 40 mg PO BID #60 tablet Guaifenesin [Mucinex] 1,200 mg PO BID #14 tablet Metoprolol Tartrate [Lopressor (beta barak)] 12.5 mg PO BID #30 tablet Primary Care Physician: Conrado Crowe PA [Primary Care Provider] - Please follow up with your Primary Care Physician in: in 1-2 week Test Results: Test results from this visit will be discussed in further detail at your follow-up appointment, if applicable. Please Follow Up With: Eros Whitfield MD When: With COMMUNITY SERVICE SPECIALIST in [address] Whitfield in 4 weeks
--- NOTE | 2018-12-02 11:20 | PCM.DC.SUM ---
Discharge Date and Diagnosis Date of Admission: 11/29/18 Date of Discharge: 12/02/18 - Primary Discharge Diagnosis Active and Suspected Problems Accelerated hypertension (Acute) Hypoxemia (Acute) Obesity (Acute) Nicotine abuse (Acute) Acute respiratory failure with hypoxia (Acute) - Secondary Discharge Diagnosis Chronic Problems HTN (hypertension) (Chronic) Hospital Course and Treatment Summary of Care Provided: The patient is a 58 year old F admitted for acute hypoxic/hypercarbic respiratory failure most probably secondary to acute heart failure with preserved EF and pulmonary hypertension: Blood pressure is controlled. Patient also has other comorbidities including morbid obesity, nicotine use and suspected obstructive sleep apnea/obesity hypoventilation syndrome. Denies previous history of coronary artery disease or stent. Will need outpatient polysomnography 1. Acute hypoxic/hypercapneic respiratory failure - suspect underlying pulmonary htn, cor pulmonale/ acute diastolic CHF. CTA with pulmonary htn, small effusions, recent 10 lb unexplained weight gain over 2 weeks, lower extremity edema, increased abdominal bloating. +PND and orthopnea. EKG with sinus arrhythmia. BNP normal. Patient was monitored on telemetry. Echo was done shows normal LV size and systolic function with EF 65%. Impaired relaxation of left ventricle. Normal RV size and systolic function. Normal tricuspid valve, RVSP 39 mmHg. Left atrium mildly enlarged. Trivial MR and TR. Patient also had hypertensive emergency. Patient seen by applications development consultant and Lasix to 40 mg 3 times daily. Patient had total of 6 L of negative fluid balance. Patient is discharged on Lasix 40 mg twice daily. Advised follow-up with pulmonary clinic in 2 weeks with nurse practitioner in 4 weeks with a neurologist. Will need sleep study and PFT. 2. Hypertensive emergency - resolved. Blood pressure controlled. 136/76 - 116/46 3. Suspected YAMILETH / OHS - feels tired all day, can sleep 24 hours straight, very htn, witnessed apnea, snores, very obese with large neck. Trending overnight pulse ox. Needs o/p sleep study. Doing well with bipap 4. Morbid obesity - forestry extension specialist eval. 5. Nicotine abuse - oatch. DVT ppx: lovenox Discharge medication reconciliation done. Discharge follow-up instructions completed. Discharge process discussed with the patient and all questions were answered to patient's satisfaction. Prescriptions were sent to the pharmacy. Walking pulse oximetry was done 86% on room air and 97% on 2 L of oxygen at rest. 92% on 2 L of oxygen on walking. The patient is ambulatory in home and in the community and requires home oxygen with portability. Follow with PCP and applications development consultant. Total time spent, exact 35 minutes on discharge meds reconciliation, examination, review of imaging and blood test and discussion with the patient on follow-up instructions. Subjective: Patient is more comfortable on breathing. Denies chest pressure or shortness of breath. Walking pulse oximetry was done and requires 2 L of oxygen Objective: General: Alert, Oriented x3, Cooperative HEENT: Atraumatic, PERRLA, EOMI, Normocephalic Neck: Supple, No JVD, Negative Carotid Bruits Lungs: No wheeze, air entry diminished, no crepitations Cardiovascular: Regular rate, Regular Rhythm, Normal S1, Normal S2, No murmurs Abdomen: Bowel Sounds Present, Soft, Non Tender, Non-Distended, Obese Extremities: Capillary Refill Less than 3 Seconds, Edema Skin: No rashes, No breakdown Musculoskeletal: No Tenderness to Palpation of Joints or Extremities, Arthritic Changes Neurological: Cranial nerves II-XII grossly intact, Deep Tendon Reflexes 2+/4 and Symmetrical, Neuro grossly intact, Motor Exam 5/5 strength throughout Psych/Mental Status: Normal Affect, Appropriate - Physical Exam Vital Signs Temp Pulse Resp BP Pulse Ox 98.1 F 68 16 136/76 H 97 12/02/18 09:40 12/02/18 09:44 12/02/18 09:40 12/02/18 09:40 12/02/18 09:40 Oxygen Flow Rate (L/min) [ 2 AMBULATION with Oxygen] Oxygen Flow Rate (L/min) 2 Oxygen Delivery Method Nasal Cannula Weight: 269 lb 10.005 oz Body Mass Index (BMI) 50.8 Intake and Output for Last 24 Hours 11/30/18 12/01/18 12/02/18 23:59 23:59 23:59 Intake Total 960 / 960 1400 / 1400 120 / 120 Output Total 4575 / 4575 2470 / 2470 850 / 850 Balance -3615 / -3615 -1070 / -1070 -730 / -730 Discharge Activity: May Not Drive - FOR 1 Week Call your doctor if you observe: Fever of 101 or Higher, Inability to have a bowel movement, Using more than one pad per hour, Shortness of breath, Dizziness, Fainting spells, Swelling in the ankles, Chest pain, Increased palpitations (irregular heartbeat), Calf discomfort Home Medications: Medications to take at Discharge Albuterol Inhaler [Ventolin Hfa] 2 puff INHALATION Q4H PRN PRN #1 inhaler 12/02/18 Furosemide [Lasix] 40 mg PO BID #60 tablet 12/02/18 Guaifenesin [Mucinex] 1,200 mg PO BID #14 tablet 12/02/18 Ipratropium/Albuterol Sulfate [Duoneb] 3 ml INHALATION Q4H PRN #30 ampul.neb 12/02/18 Metoprolol Tartrate [Lopressor (beta barak)] 12.5 mg PO BID #30 tablet 12/02/18 Nicotine [Nicoderm] 14 mg TRANSDERM. DAILY #30 patch 12/02/18 Following Prescrptions Were Given to Patient: Albuterol Inhaler [Ventolin Hfa] 2 puff INHALATION Q4H PRN PRN #1 inhaler PRN Reason: Shortness Of Breath Ipratropium/Albuterol Sulfate [Duoneb] 3 ml INHALATION Q4H PRN #30 ampul.neb PRN Reason: Sob &/Or Wheezing Nicotine [Nicoderm] 14 mg TRANSDERM. DAILY #30 patch Furosemide [Lasix] 40 mg PO BID #60 tablet Guaifenesin [Mucinex] 1,200 mg PO BID #14 tablet Metoprolol Tartrate [Lopressor (beta barak)] 12.5 mg PO BID #30 tablet Primary Care Physician: Conrado Crowe PA [Primary Care Provider] - Please follow up with your Primary Care Physician in: in 1-2 week Please Follow Up With: Eros Whitfield MD When: With RN [facility] in [address] Whitfield in 4 weeks Medical Necessity - Tobacco Use Smoking Status: Current every day smoker Tobacco Use: Cigarettes Meaningful Use Info Meaningful Use Diagnoses (Choose all that apply): None applicable Code Visit Inpatient E&M: 24632 Disch Hosp
== END 2018-12-02 13:18 | disposition home or self-care (01) | DRG 189 ==
LOC: ED 17:38 → PCU 17:52
PROVIDERS: Physician Assistant; Admitting Provider Internal Medicine; Emergency Provider Emergency Medicine; Family Provider Physician Assistant; PCP Physician Assistant; Visit Provider Internal Medicine
DX: J96.01 Acute respiratory failure with hypoxia (principal); I50.31 Acute diastolic (congestive) heart failure; Z68.43 Body mass index [BMI] 50.0-59.9, adult; I16.1 Hypertensive emergency; J96.02 Acute respiratory failure with hypercapnia; E66.01 Morbid (severe) obesity due to excess calories; I27.20 Pulmonary hypertension, unspecified; G47.33 Obstructive sleep apnea (adult) (pediatric); I11.0 Hypertensive heart disease with heart failure; F17.210 Nicotine dependence, cigarettes, uncomplicated; Z99.81 Dependence on supplemental oxygen; Z79.899 Other long term (current) drug therapy
CPT/HCPCS: 36415; 36600; 71275; 80048; 81001; 82803; 83880; 84484; 85025; 85610; 85730; 93005; 93306; 94002; 94003; 94640; 99251; 99285; 99406; Q9957; Q9967; A4216; C8929; G0463; J1940

== ENCOUNTER → 2018-12-31 08:49 | Outpatient (CLI) | payer BC, SELFPAY ==
[2018-12-17 11:06] VITALS: BMI 50.8
[2018-12-31 10:22] VITALS: PULSE 103; PULSE 105; PULSE 84; PULSE 86; PULSE 90; PULSE 96; PULSE 97; PULSE 99; O2SAT 86; O2SAT 89; O2SAT 90; O2SAT 91; O2SAT 92; O2SAT 94
--- NOTE | 2018-12-31 10:35 | CPS ---
Patient came in on own tank at 2 lpm O2. Room Air SpO2 90% after sitting for 10+ minutes. Started walk on room air, by the 2nd minute SpO2 86%. Placed patient on 2 lpm O2 nasal cannula. Patient walked the rest of the test without breaks on 2 lpm O2.
--- NOTE | 2018-12-31 14:26 | PCM.PSN.6M ---
PSN 6 Minute Walk Test - 6 Minute Walk Test 6 Minute Walk Test: 6 Minute Walk Test PSN:6-Minute Walk Test Start: 12/31/18 10:22 Freq: Status: Active Protocol: [id number] Document 12/31/18 10:22 NETTA (Rec: 12/31/18 10:37 NETTA [id number]) 6 Minute Walk Test Date Performed 12/31/18 Time Performed 09:00 Height 5 ft 2 in Weight: 263 lb Weight in Pounds 263.[address]: Bianca Martin Assistive device used: None Pre-test Oxygen Delivery Method Room Air Pulse Ox (%) 90 Pulse Rate (60-100 beats/min) 86 Dyspnea Oswaldo Scale (0-10) 0 Exertion Oswaldo Scale (6-20) 6 1st minute Oxygen Delivery Method Room Air Pulse Ox (%) 89 Pulse Rate (60-100 beats/min) 90 2nd minute Oxygen Delivery Method Room Air Pulse Ox (%) 86 Pulse Rate (60-100 beats/min) 96 3rd minute Oxygen Flow Rate (L/min) (L/min) 2 Oxygen Delivery Method Nasal Cannula Pulse Ox (%) 92 Pulse Rate (60-100 beats/min) 99 4th minute Oxygen Flow Rate (L/min) (L/min) 2 Oxygen Delivery Method Nasal Cannula Pulse Ox (%) 92 Pulse Rate (60-100 beats/min) 97 5th minute Oxygen Flow Rate (L/min) (L/min) 2 Oxygen Delivery Method Nasal Cannula Pulse Ox (%) 91 Pulse Rate (60-100 beats/min) 103 H 6th minute Oxygen Flow Rate (L/min) (L/min) 2 Oxygen Delivery Method Nasal Cannula Pulse Ox (%) 90 Pulse Rate (60-100 beats/min) 105 H Dyspnea Oswaldo Scale (0-10) 2 Exertion Oswaldo Scale (6-20) 14 Post-test Oxygen Flow Rate (L/min) (L/min) 2 Oxygen Delivery Method Nasal Cannula Pulse Ox (%) 94 Pulse Rate (60-100 beats/min) 84 Full Laps Walked 13 Partial Lap, Number of Tiles Walked 3 Total Distance Walked (ft) 770 12/31/18 10:35 Cardiopulmonary Services by Jonelle Stone Patient came in on own tank at 2 lpm O2. Room Air SpO2 90% after sitting for 10+ minutes. Started walk on room air, by the 2nd minute SpO2 86%. Placed patient on 2 lpm O2 nasal cannula. Patient walked the rest of the test without breaks on 2 lpm O2. Initialized on 12/31/18 10:35 - END OF NOTE - Interpretation Interpretation: The patient ambulated 770 feet over the course of 6 minutes beginning on room air without assistive devices or breaks. Pretesting oxygen saturation was noted to be 90% on room air. With ambulation, the giuliana oxygen saturation was 86%. 2 L/min of supplemental oxygen was applied, and the patient was able to complete the remainder of the test while maintaining appropriate oxygen saturations. - Recommendations Recommendations: 2 L/min of supplemental oxygen should be utilized with exertion.
== END ==
PROVIDERS: Family Provider Physician Assistant; PCP Physician Assistant; Referring Provider Nurse Practitioner Acute Care; Visit Provider Nurse Practitioner Acute Care
DX: J96.01 Acute respiratory failure with hypoxia (principal)
CPT/HCPCS: 94618

== ENCOUNTER → 2019-01-08 20:23 | Outpatient (CLI) | payer BC, SELFPAY ==
[2018-12-17 11:06] VITALS: BMI 50.8
== END ==
PROVIDERS: Family Provider Physician Assistant; PCP Physician Assistant; Referring Provider Nurse Practitioner Acute Care; Visit Provider Nurse Practitioner Acute Care
DX: G47.33 Obstructive sleep apnea (adult) (pediatric) (principal)
CPT/HCPCS: 95811

== ENCOUNTER → 2019-01-09 07:13 | Outpatient (CLI) | payer BC, SELFPAY ==
[2018-12-17 11:06] VITALS: BMI 50.8
--- NOTE | 2019-01-09 14:50 | PFTCOMP ---
COMPLETE PULMONARY FUNCTION TEST INTERPRETATION Brief HPI: Patient is a 58 year old female, currently under the care of Bianca Martin, who presents to [facility] for complete pulmonary function tests secondary to diagnosis of COPD. Respiratory therapist reports good effort and reproducible results. Interpretation: Forced expiration spirometry shows a moderately severe large airways obstructive ventilatory defect with an FEV1 of 51% predicted. There is no significant bronchodilator response by strict ATS criteria. Spirograms are of good quality and plateau slowly, indicating slowly emptying areas of the lungs. The respiratory flow volume loop shows decreased expiratory flow rates at high lung volumes consistent with small airways obstruction. Lung volumes by body plethysmography show a normal total lung capacity at 4.24 L, 94% predicted. FRC and RV are elevated out of proportion. Lung volume measurements are consistent with air-trapping. Diffusion capacity by carbon monoxide is decreased at 54% predicted. The airway resistance is normal. No previous pulmonary function tests were available for review. Impression: Irreversible moderately severe large airways obstructive ventilatory defect with a symmetric reduction diffusing capacity, resulting in air trapping and consistent with patient's diagnosis of COPD.
== END ==
PROVIDERS: Family Provider Physician Assistant; PCP Physician Assistant; Referring Provider Nurse Practitioner Acute Care; Visit Provider Nurse Practitioner Acute Care
DX: R06.09 Other forms of dyspnea (principal)
CPT/HCPCS: 94060; 94726; 94729

== ENCOUNTER → 2019-01-28 14:52 | Outpatient (CLI) | payer BC, SELFPAY ==
[2018-12-17 11:06] VITALS: BMI 50.8
[2019-01-18 11:09] VITALS: BMI 50.8
== END ==
PROVIDERS: Family Provider Physician Assistant; PCP Physician Assistant; Referring Provider Nurse Practitioner Acute Care; Visit Provider Nurse Practitioner Acute Care
DX: G47.33 Obstructive sleep apnea (adult) (pediatric) (principal)

== ENCOUNTER → 2019-04-09 08:55 | Outpatient (CLI) | payer BC, SELFPAY ==
[2019-03-26 06:42] VITALS: BMI 48.2
--- NOTE | 2019-04-09 09:08 | PCM.PR.TP ---
General Information - General Information Admitting Diagnosis: GOLD CLASSIFICATION II: MODERATE COPD, YAMILETH. Gold Classification:: GOLD 2: Moderate Oxygen: 2 LITERS - PFT FEV1:: 1.19 - 50% FVC:: 1.56 - 51% FEV1/FVC%:: 77 - Education/Goals Barriers to Learning: Vision Impairment Individual Counseling: Initial Assessment: Dyspnea control techniques at rest, activity, and ADLs, Exacerbation prevention & management, O2, Rx, system, safety, ADL management and pacing, Panic & depression management, Nutrition & weight management, Smoking cessation, Home exercise plan & guidelines Patient Goals: Breathe better: Initial Assessment, Increase endurance/stamina: Initial Assessment, Return to recreation/hobby: Initial Assessment, Control panic/anxiety: Initial Assessment, Improve diet and nutrition: Initial Assessment, Symptom management: Initial Assessment, Improve weight: Initial Assessment Exercise - Initial Assessment - Visit Date of Eval: 04/09/19 - START PULM REHAB ON - Problem/Goals Problems: No regular exercise Goals:: Aerobic exercise 30-60 mins x 9 weeks, [place]: 2-3/wk - Physician Prescribed Exercise Modalities: Treadmill, Airdyne, NuStep, SciFit Frequency (days/week): 3 Duration (Minutes):: 30-45 MIN Intensity: 60-80% age predicted maximum heart rate reserve METs - Progression: 0.5-1.0 MET, RPE 11-14 WEEK: 2.5 - 65% OF MAX PREDICTED HR Target Heart Rate:: 104-136 - Plan Plan and Plan to Review:: Benefits of exercise, Core components of exercise, How to measure dyspnea level, How to monitor dyspnea level, Exercise intensity, Exercise safety guideline, Home exercise guidelines, Oswaldo: 3-4/11-13 Disease Management - Initial - Problems/Goals-Hypoxemia Hypoxemia Problems:: Hypoxemia Hypoxemia Goals:: Hypoxemia managed, Port system, Using O2 as Rx's safely - Problems/Goals-Medications Medication Problems:: Medication non-adherence, Incorrect inahled Rx use, technique Medication Goals: Adherence to prescribed medications, Correct technique/timing & care of MDI, DPI, nebulizer, and spacer. - Problems/Goals-Bronchial Hygiene Bronchial Hygiene Problems:: Ineffective secretion clearance, Respiratory infection Prevention/Management Bronchial Hygiene Goals:: Pt demonstrates effective cough, effective secretion clearance., Pt describes signs and symptoms of infection. - Initial Assessment SpO2:: 96 Port O2:: 2 DME:: [facility] Does pt report taking home meds as prescribed?: Yes Medications: Yes MDI, Yes NEB, N/A Spacer - WILL INSTRUCT PATIENT ON MDI/SPACER Patient Reports:: Non-productive cough - Plans Hypoxemia Plan:: Monitor SpO2 rest & with exercise, Train appropriate O2 use at rest, Train appropriate O2 use with exercise, Train O2 safety & systems Reviewed prescribed medications:: Purpose, Schedule, Side effects, Importance of compliance Instruct correct technique/timing & care:: MDI, DPI, Nebulizer, Return demo use of inhaler Bronchial Hygiene Plan: Controlled cough, Vibratory PEP device, Hydration, Hand hygiene, Evaluate sputum, Signs/symptoms to report:, Influenza/Pneumovax vaccines Psychosocial - Initial Assess - Problems/Goals Problems: Depression, Anxiety, Impaired Q.O.L. - Psychosocial Test Depression:: Impaired QOL Tests Completed: SF - 36 survey completed, Mood Scale Test - Plan Reviewed screening results: Yes Instructions given regarding:: Benefits of exercise, Relaxation techniques, Training in coping strategies Tobacco - Initial Assessment - Program Goals Tobacco Program Goals: Complete smoking cessation. Attend education classes. Improve Knowledge Test score - Stage of Change Stages of Change:: Action - Learning Barriers Learning Barriers: Vision, Ready to Learn - Family Support Do you have family support?: Yes - Tobacco Use Tobacco Use: Cigarettes - RECENTLY QUIT SMOKING/ NICODERM 12MG PATCH How long ago did you quit using tobacco products?: Less than 6 months ago How many cigarettes do you smoke per day?: 20 Years Smokin Do you use smokeless tobacco?: No - Intervention Smoking Cessation Referral:: Yes - SUPPORT PATIENT IN COMPLETE SMOKING CESSATION Individual Education/Counseling:: No Education Schedule Given:: Yes - Education Gave Education Materials For:: Tobacco Triggers, Pulmonary Disease, Risk Factors, Breathing Techniques, Medical Compliance, Pulmonary A&P, Exacerbation Signs & Symptoms, Stress & Relaxation Nutrition/Wt Mgmt - Initial - Problems/Goals Problems: Overweight Goals: Wt Loss 1-2 lbs per week - Weight Management Knowledge Deficit Management of:: Overweight Admit Height:: 5 ft 2 in Admit Weight:: 264 lb Admit BMI:: 48.2 - Diabetes Diabetes:: Yes Insulin: No - Intervention Referral to dietitian:: Yes - WHY WEIGHT - BMI 48.2 E66, E11, Z68, E78, I10 Referral to Diabetic Clinic:: Yes - INITIAL DSMNT & MNT, MEDICAL NUTRITION THERAPY FOR E11 Will attend diet classes:: Yes - Plan Nutrition Plan: Yes Review BMI or WC & identify target wt & strategies for wt control, Yes Nutrition education class:, Yes Weight control education class:, Yes Education re: Need for ongoing weight monitoring - REFERRED TO WHY WEIGHT PROGRAM Patient Health Questionnaire Initial Assessment 1. Little interest or pleasure in doing things: Several days 2. Feeling down, depressed, or hopeless: Several days 3. Trouble falling or staying asleep, or sleeping too much: Several days 4. Feeling tired or having little energy: Several days 5. Poor appetite or overeating: More than half the days 6. Feeling bad about yourself -- or that you are a failure or have let yourself or your family down: More than half the days 7. Trouble concentrating on things, such as reading the newspaper or watching television: Several days 8. Moving or speaking so slowly that other people could have noticed. Or the opposite - being so fidgety or restless that you have been moving around a lot more than usual: Not at all 9. Thoughts that you would be better off , or of hurting yourself in some way: Not at all How difficult have these problems made it for you to do your work, take care of things at home, or get along with other people?: Somewhat difficult Total Score: 9 COPD Knowledge Test Initial COPD is a lung disease that:: Makes it hard to breathe & gets worse over time In the [place] the term COPD describes 2 main lung conditions:: Emphysema & chronic bronchitis The most common lung irritant that causes COPD is:: Cigarette smoke Common signs and symptoms of COPD include:: An ongoing cough/cough that produces a large amount of mucus, & SOB If you have COPD, what steps can you take?: Quit smoking & avoid secondhand smoke Swelling of the ankles is common in COPD:: False Fatigue [tiredness] is common in COPD:: True Wheezing is common in COPD:: True Crushing chest pain is common in COPD:: False Rapid weight loss is common in COPD:: False Breathlessness is a normal response to exercise: True Exercise should be avoided if it makes you short of breath: True All bronchodilators act within 10 minutes: True A spacer device increases the medication to the lungs: True Annual flu vaccine is recommended for pts w/lung disease: True COPD Knowledge Test Total Score:: 12 COPD Assessment Test [CAT] - Questions Never cough = 0, Cough all the time = 5: 2 No phlegm = 0, Chest full of phlegm = 5: 2 No chest tightness = 0, Chest very tight = 5: 1 No breathless w/exertion = 0, Very breathless w/exertion = 5: 3 No limitations w/activity = 0, Very limited w/activity = 5: 2 Confident leaving home = 0, Not at all confident = 5: 1 Sleep soundly = 0, Don't sleep soundly = 5: 2 Lots of energy = 0, No energy at all = 5: 3 Total CAT score:: 16 Self-Efficacy Initial Assessment We would like to know how confident you are in doing certain activities. Please select your confidence level for:: Select your confidence level for the following using the scale 1-10 where 1 is not at all confident and 10 is totally confident. Your score is the average of all 6 responses. Fatigue: How confident are you that you can keep the fatigue caused by your disease from interfering with the things you want to do? Select Number: 5 Physical Discomfort or Pain: How confident are you that you can keep the physical discomfort or pain of your disease from interfering with the things you want to do? Select Number: 6 Emotional Distress: How confident are you that you can keep the emotional distress caused by your disease from interfering with the things you want to do? Select Number: 6 Other Symptoms or Health Problems: How confident are you that you can keep other symptoms or health problems from interfering with the things you want to do? Select Number: 6 Different Tasks and Activities: How confident are you that you can do the different tasks and activities needed to manage your health condition so as to reduce your need to see a doctor? Select Number: 8 Medication: How confident are you that you can do things other than just taking medication to reduce how much your illness affects your everyday life? Select Number: 10 Total Score:: 6 Nutrition Survey - Nutrition Survey Instructions Scoring Instructions: Scoring is as follows: Yes = 1 points. No = 0 point. Patient score that is >/=12 is considered to be at potential nutritional risk and could benefit from a referral to a registered dietitian. - Nutrition Survey Initial Have you lost >10 lbs over the past 2 months without trying?: No Are you following a special diet at home for diabetes, low fat, or low salt?: Yes Are you interested in meeting with a dietitian for help understanding your diet?: Yes Do you eat less than 3 meals a day?: Yes Do you eat fatty meats (zhong, sausage, ribs, etc), fried foods, desserts, large amounts of salad dressings, margarine, butter, or cheese most days?: Yes Do you have food allergies? [Enter types in comment field]: No Do you eat in restaurants more than 3 times a week?: No Do you season food with salt, seasoning salt, or garlic salt?: No Do you used canned, boxed, frozen meals, or soups, seasoning packets?: Yes - REFERRED FOR MEDICAL NUTRITION RAMYA OLIVA AND INITIAL DSMNT & MNT Total Score:: 5
--- NOTE | 2019-04-09 09:09 | PCM.PR.HP ---
History of Present Illness Arrival date:: 04/09/19 Arrival time:: 09:09 Date of Referral:: 03/26/19 Date of Evaluation: 04/09/19 Referring Physician: DR. SATNAM KENNEDY Primary Diagnosis: GOLD STAGE II MOSDERATE COPD History of Present Illness: [address] KENNEDY PRESENTS TO [place] TODAY FOR EVALUATION AND ORIENTATION FOR HER MODERATE COPD AND YAMILETH TO START PULM REHAB. [facility] Breathless Scale: When is the patient short of breath? Y/N Grade: Description of Breathlessness: 0 I only get breathless with strenuous exercise. 1 I get short of breath when hurrying on level ground or walking up a slight hill. 2 On level ground, I walk slower than people of the same age because of breathless, or have to stop for breath when walking at my own pace. 3 I stop for breath after walking 100 yards or after a few minutes on level ground. 4 I am too breathless to leave the house or I am breathless when dressing. Respiratory Problems: Yes: Able to Speak in Full Sentences, Anxiety, Dyspnea with Activity, Dyspnea Lying Down Flat No: Retain Secretions, Limited Range of Motion, Wheezing, Ankle Swelling, Dyspnea at Rest, Cough with Secretions Home Medications: Home Medications Albuterol Inhaler [Ventolin Hfa] 2 puff INHALATION Q4H PRN PRN #1 inhaler 12/02/18 Furosemide [Lasix] 40 mg PO BID #60 tab 12/02/18 Ipratropium/Albuterol Sulfate [Duoneb] 3 ml INHALATION Q4H PRN #30 ampul.neb 12/02/18 Metoprolol Tartrate [Lopressor (beta barak)] 12.5 mg PO BID #30 tab 12/02/18 Nicotine [Nicoderm] 14 mg TRANSDERM. DAILY #30 patch 12/02/18 glycopyrrolate 9 mcg-formoterol 4.8 mcg HFA aerosol inhaler 2 puff INHALATION QAM AND QPM #1 inh 01/18/19 atorvastatin 20 mg tablet 20 mg PO QHS 03/26/19 metformin ER 500 mg tablet,extended release 24 hr PO #60 tab 03/26/19 Allergies/Adverse Reactions: Allergies No Known Allergies Allergy (Verified 03/26/19 13:39) - Secretions Cough:: No Hx of Sleep Apnea: Yes Do you snore loudly (louder than talking or can be heard through closed doors)?: Yes - DIAGNOSED YAMILETH W/HOME CPAP Do you often feel tired/ fatigued/ sleepy during daytime?: Yes Has anyone observed you stop breathing during sleep?: Yes History of Hypertension (for STOP score): Yes STOP Results: Positive Medical Utilization Do you use a peak flow meter at home?: No Do you use a spacer device with your inhalers?: No Number of hospital visits in the last year?: 1 Number of emergency room visits in the last year?: 1 Do you see your physician on a regular schedule?: Yes How often?: MONTH TO 3 MONTHS Advanced Directives - Advanced Directives Power of Tennis Professional: No Living Will: No Advance Directives Information Provided: Yes Advance Directives on File: No DNR Order?:: No - MOLST See MOLST form: No Past Medical History Medical History: Past Medical History (Last Reviewed 03/26/19 @ 13:38 by Rajni Ralph) Bronchitis (Acute) J40 Accelerated hypertension (Acute) I10 Hypoxemia (Acute) R09.02 HTN (hypertension) (Chronic) I10 Obesity (Acute) E66.9 Nicotine abuse (Acute) Z72.0 Acute respiratory failure with hypoxia (Acute) J96.01 Surgical History: Past Surgical History (Last Reviewed 03/26/19 @ 13:38 by Rajni Ralph) History of hysterectomy (Resolved) Z90.710 Family History: Family History (Last Reviewed 03/26/19 @ 13:38 by Rajni Ralph) Mother Heart disease COPD (chronic obstructive pulmonary disease) Father COPD (chronic obstructive pulmonary disease) Cancer prostate Sister Heart disease CHF (congestive heart failure) FH: mental illness Social History - Smoking History Smoking Status: Former smoker Years Smokin Packs Smoked per Day: 1 Hx Smoking Cessation Date: 03/26/2019 Hx Tobacco Use: Yes Hx Smoking Exposure: Yes - Alcohol Use Alcohol Usage: No - Substance Abuse Hx Substance Use: No - Occupation Occupation (List type of work in comments):: Unemployed - OFF ON MEDICAL LEAVE - Hobbies, Recreation, Social Activities Hobbies: Other - BINGO, AUCTIONS, MY GRANDCHILDREN, SHOPPING Recreational Activities: I am able to engage in most, but not all activities Functioning ADL/IADL - Current Ability Current Ability: Independent Self-Care (e.g.,grooming, dressing, & bathing), Independent Ambulation, Independent Transfer, Independent Household tasks (e.g., light meal prep, laundry, shopping) - Pt Functioning Prior to Problem Prior Functioning: Self-Care (e.g.,grooming, dressing, & bathing): Independent, Ambulation: Independent, Transfer: Independent, Household tasks (e.g., light meal prep, laundry, shopping): Independent Social Environment - Status Marital Status: - Current Living Arrangements Living Environment:: Spouse - Children How many children do you have?: 5 Do any of your children live nearby?: Yes - 3 IN THE AREA; [address] ON [address] [facility] AREA. - Safety Do you feel safe in your surroundings?: Yes - Assistance Do you need any assistance at home?: NONE Review of Systems Review of Systems: Right click = Denies ([place]). Left click = Reports ([place]) Respiratory: Reports: Appetite, Normal, Sleep, Normal. Denies: Cough, SOB at Rest, Sputum production Is Patient Pain Free?: Yes Pain Location: none Pain Level: 0/10 Risk Factor Assessment - Chief Complaint Chief Complaint: GOLD CALSSIFICATION II COPD: MODERATE - Vital Signs Temperature: 97.5 F Pulse Rate: 68 Pulse Rhythm: Regular Respiratory Rate: 18 Pulse Ox: 96 - ON 2 LITERS OXYGEN Blood Pressure: 126/78 Nailbeds:: PINK - Diabetes Diabetic History: Type II, Medication Dependent Nutrition Referral for Diabetes: Yes - Obesity Height: 5 ft 2 in Weight:: 263 lb 15.986 oz Weight in Pounds: 264.0 lbs Weight Source: Standing Scale Body Mass Index (BMI): 48.2 Realistic Weight Goal (Loss of 1-2 lbs/week): 252 Nutritional Referral for Obesity: Yes - WHY WEIGHT - Physical Activity Physical Inactivity: None - Risk Stratification Risk Guidelines: Lowest Risk: Risk Factor for Dyslipidemia, Risk Factor for Diabetes, Risk Factor for Hypertension, Risk Factor for Sedentary Lifestyle, Risk Factor for Depression, Moderate Risk: Risk Factor for Sedentary Lifestyle, Highest Risk: Risk Factor for Smoking, Risk Factor for Obesity - For Smoking Smoking Risk Guidelines: Smoking Low Risk: None or quit greater than 6 months ago. Smoking Moderate Risk: Smoker or quit 6 months or less ago. Smoking High Risk: Smoker - For Dyslipidemia Dyslipidemia Risk Guidelines: Low Risk: Moderate Risk: High Risk: 15-25% fat 25.1-29% fat >/= 30% fat. <7% sat fat 7-9% sat fat >9% sat fat. <150 mg chol 150-299 mg chol >/= 300 mg chol. LDL <100 LDL 100-129 LDL >/= 130. Chol/HDL ratio <5.0 Chol/HDL ratio 5.0-6.0 Chol/HDL ratio >6.0. Triglycerides <100 Triglycerides 100-149 Triglycerides >/= 150 - For Diabetes Mellitus Diabetes Risk Guidelines: Diabetes Low Risk: HgA1c <6.5% and/or FBG <120. Diabetes Moderate Risk: HgA1c 6.6-7.9% and/or FBG 120-180. Diabetes High Risk: HgA1c >/= 8% and/or FBG >180 - For Obesity/Overweight Obesity/Overweight Risk Guidelines: Obesity Low Risk: BMI <25.0. Obesity Moderate Risk: BMI 25-29.9. Obesity High Risk: BMI >/= 30.0 - For Hypertension Hypertension Risk Guidelines: Hypertension Low Risk: Systolic <120 and Diastolic <80. Hypertension Moderate Risk: Systolic 120-139 and Diastolic 80-89. Hypertension High Risk: Systolic >/= 140 and Diastolic >/= 90 - For Sedentary Lifestyle Sedentary Lifestyle Risk Guidelines: Sedentary Lifestyle Low Risk: >/= 1,500 kcal/week. Sedentary Lifestyle Moderate Risk: 700-1,499 kcal/week. Sedentary Lifestyle High Risk: < 700 kcal/week - For Depression Depression Risk Guidelines: Depression Low Risk: Not clinically depressed. Depression Moderate Risk: Mildly depressed. Depression High Risk: Clinically depressed Motivation - Motivation to Participate On a scale of 1 to 10, how prepared are you to commit to attending program?: 10 What do you see as barriers to successfully being able to complete the program?: INSURANCE COVERAGE; FIGHTING WITH L.O.A AND DISABILITY PAY What do you see as the benefits of succesfully completing the program? In other words, what do you hope to get out of participating in the program?: BREATHING BETTER, BETTER QUALITY OF LIFE, FEELING BETTER ABOUT MYSELF. Are there issues you are dealing with that will interfere with completing the program?: L.O.A. / MEDICAL LEAVE / DISABILITY Do you have a spouse or signficant other, family or friends who will help support you to complete the program?: YES Diagnostic Data Review - Pulmonary Function Test FEV1:: 1.19 FVC:: 1.56 FEV1/FVC%:: 77 Gold Classification: GOLD class II(mod. COPD)with FEV1/FVC <70%, 50%</= FEV1< 50% predicted
[2019-04-09 09:36] VITALS: O2SAT 96; BMI 48.2
[2019-04-09 09:48] VITALS: BP 126/78; PULSE 68; RESP 18; TEMP 36.4; O2SAT 96; BMI 48.2
== END ==
PROVIDERS: Family Provider Physician Assistant; PCP Physician Assistant; Referring Provider Internal Medicine Critical Care Medicine; Visit Provider Internal Medicine Critical Care Medicine
DX: J96.01 Acute respiratory failure with hypoxia (principal); J44.9 Chronic obstructive pulmonary disease, unspecified; G47.33 Obstructive sleep apnea (adult) (pediatric); I10 Essential (primary) hypertension; E66.9 Obesity, unspecified

== ENCOUNTER 2019-05-01 09:30 | Outpatient (RCR) | payer BC, SELFPAY ==
[2019-04-09 09:48] VITALS: BMI 48.2
== END 2019-05-02 23:59 ==
LOC: PR 09:30
PROVIDERS: Family Provider Physician Assistant; PCP Physician Assistant; Referring Provider Internal Medicine Critical Care Medicine; Visit Provider Internal Medicine Critical Care Medicine
DX: J44.9 Chronic obstructive pulmonary disease, unspecified (principal)
CPT/HCPCS: 97150; G0424

== ENCOUNTER 2019-05-22 10:30 | Outpatient (RCR) | payer BC, SELFPAY ==
[2019-04-09 09:48] VITALS: BMI 48.2
== END 2019-06-01 23:59 ==
LOC: DC 10:30
PROVIDERS: Family Provider Physician Assistant; PCP Physician Assistant; Visit Provider Internal Medicine Critical Care Medicine
DX: Z71.3 Dietary counseling and surveillance (principal); E11.9 Type 2 diabetes mellitus without complications; E66.9 Obesity, unspecified; I10 Essential (primary) hypertension; J44.9 Chronic obstructive pulmonary disease, unspecified; G47.33 Obstructive sleep apnea (adult) (pediatric); J96.01 Acute respiratory failure with hypoxia
CPT/HCPCS: 97802; 97803; G0108

== ENCOUNTER → 2019-05-23 13:00 | Outpatient (CLI) | payer BC, SELFPAY ==
[2019-04-09 09:48] VITALS: BMI 48.2
== END ==
PROVIDERS: Family Provider Physician Assistant; PCP Physician Assistant; Referring Provider Nurse Practitioner Acute Care; Visit Provider Nurse Practitioner Acute Care
DX: G47.33 Obstructive sleep apnea (adult) (pediatric) (principal)
CPT/HCPCS: 98960; G0463

== ENCOUNTER 2019-05-27 09:30 | Outpatient (RCR) | payer BC, SELFPAY ==
[2019-04-09 09:48] VITALS: BMI 48.2
== END 2019-06-01 23:59 ==
LOC: PR 09:30
PROVIDERS: Family Provider Physician Assistant; PCP Physician Assistant; Referring Provider Internal Medicine Critical Care Medicine; Visit Provider Internal Medicine Critical Care Medicine
DX: J44.9 Chronic obstructive pulmonary disease, unspecified (principal)
CPT/HCPCS: 97150; G0424

== ENCOUNTER 2019-06-21 11:30 | Outpatient (RCR) | payer BC, SELFPAY ==
[2019-04-09 09:48] VITALS: BMI 48.2
== END 2019-07-02 23:59 ==
LOC: NS 11:30
PROVIDERS: Family Provider Physician Assistant; PCP Physician Assistant; Visit Provider Internal Medicine Critical Care Medicine
DX: Z71.3 Dietary counseling and surveillance (principal); E66.9 Obesity, unspecified; I10 Essential (primary) hypertension; J44.9 Chronic obstructive pulmonary disease, unspecified; G47.33 Obstructive sleep apnea (adult) (pediatric); J96.01 Acute respiratory failure with hypoxia
CPT/HCPCS: 97803; G0108

== ENCOUNTER 2019-07-01 09:30 | Outpatient (RCR) | payer BC, SELFPAY ==
[2019-04-09 09:48] VITALS: BMI 48.2
--- NOTE | 2019-06-03 10:43 | PCM.PR.TP ---
Exercise - 60-Day Assessment - Physician Prescribed Exercise Modalities: Treadmill, NuStep, SciFit Frequency (days/week): 3 Duration (Minutes):: 30-45 Intensity: 60-80% age predicted maximum heart rate reserve Aerobic Exercise [30-60 min 3-7x/week]:: Progressing Target heart rate: 104-136 MAX HR 118 Oswaldo-13 METs - Progression: 0.5-1.0 MET, RPE 11-14 WEEK: 3.5 - Home Exercise Home Exercise:: No Disease Management - 60-Day - Hypoxemia Reassessment: Demonstrates knowledge of O2 Rx at rest, Demonstrates knowledge of O2 Rx with exercise, Using O2 as prescribed, Has home O2 as prescribed, Uses port O2 as prescribed - Medications Medication list reviewed:: Yes Taking medications 100% of the time:: Met Medication reassessment: Yes Pt demonstrates correct technique timing for MDI, Yes Pt demonstrates correct technique timing for DPI, Yes Pt demonstrates correct technique timing for NEB, Yes Pt demonstrates correct technique timing for spacer - Bronchial Hygiene Bronchial Hygiene Plan: Yes Pt demonstrates correctly for effective cough, Yes Pt demo correct for device, Yes Pt demo correct for sputum management, Yes Pt demo correct for improved hydration, Yes Pt demo correct for hand hygiene, Yes Pt demo correct for verbalize when to call MD Psychosocial - 60-Day - Assessment Depression reassess: Management of stress: Progressing, Management of depression: Progressing, Practicing interventions: Progressing Tobacco - 60-Day Assessment - Program Goals Tobacco Program Goals: Complete smoking cessation. Attend education classes. Improve Knowledge Test score - Stage of Change Stages of Change:: Action - Learning Barriers Learning Barriers: Participates in education - Family Support Do you have family support?: Yes - Tobacco Use Tobacco Use: Non-smoker Do you use smokeless tobacco?: No - Intervention Smoking Cessation Referral:: No Individual Education/Counseling:: No Education Schedule Given:: Yes - Education Gave Education Materials For:: Pulmonary Disease, Risk Factors, Breathing Techniques, Medical Compliance, Pulmonary A&P, Exacerbation Signs & Symptoms, Stress & Relaxation Nutrition/Wt Mgmt - 60-Day - Weight Management Weight:: 269 lb 8 oz - UNCHANGED Weight Goals Progress:: Referral to structured weight management program - [place] COULD BENEFIT FROM STRUCTURED WEIGHT LOSS PROGRAM. Patient Health Questionnaire 60-Day Re-eval Assessment 1. Little interest or pleasure in doing things: Several days 2. Feeling down, depressed, or hopeless: Several days 4. Feeling tired or having little energy: Not at all 5. Poor appetite or overeating: Not at all 6. Feeling bad about yourself -- or that you are a failure or have let yourself or your family down: Several days 7. Trouble concentrating on things, such as reading the newspaper or watching television: Not at all 8. Moving or speaking so slowly that other people could have noticed. Or the opposite - being so fidgety or restless that you have been moving around a lot more than usual: Not at all 9. Thoughts that you would be better off , or of hurting yourself in some way: Not at all How difficult have these problems made it for you to do your work, take care of things at home, or get along with other people?: Somewhat difficult Total Score: 3 Self-Efficacy 60-Day Re-eval Assessment We would like to know how confident you are in doing certain activities. Please select your confidence level for:: Select your confidence level for the following using the scale 1-10 where 1 is not at all confident and 10 is totally confident. Your score is the average of all 6 responses. Fatigue: How confident are you that you can keep the fatigue caused by your disease from interfering with the things you want to do? Select Number: 8 Physical Discomfort or Pain: How confident are you that you can keep the physical discomfort or pain of your disease from interfering with the things you want to do? Select Number: 9 Emotional Distress: How confident are you that you can keep the emotional distress caused by your disease from interfering with the things you want to do? Select Number: 9 Other Symptoms or Health Problems: How confident are you that you can keep other symptoms or health problems from interfering with the things you want to do? Select Number: 10 Different Tasks and Activities: How confident are you that you can do the different tasks and activities needed to manage your health condition so as to reduce your need to see a doctor? Select Number: 10 Medication: How confident are you that you can do things other than just taking medication to reduce how much your illness affects your everyday life? Select Number: 10 Total Score:: 9
== END 2019-07-02 23:59 ==
LOC: PR 09:30
PROVIDERS: Family Provider Physician Assistant; PCP Physician Assistant; Referring Provider Internal Medicine Critical Care Medicine; Visit Provider Internal Medicine Critical Care Medicine
DX: J44.9 Chronic obstructive pulmonary disease, unspecified (principal)
CPT/HCPCS: 97150; G0424

== ENCOUNTER 2019-07-26 13:30 | Outpatient (RCR) | payer BC, SELFPAY ==
[2019-04-09 09:48] VITALS: BMI 48.2
== END 2019-08-02 23:59 ==
LOC: NS 13:30
PROVIDERS: Family Provider Physician Assistant; PCP Physician Assistant; Visit Provider Internal Medicine Critical Care Medicine
DX: Z71.3 Dietary counseling and surveillance (principal); E66.9 Obesity, unspecified; I10 Essential (primary) hypertension; J44.9 Chronic obstructive pulmonary disease, unspecified; G47.33 Obstructive sleep apnea (adult) (pediatric); J96.01 Acute respiratory failure with hypoxia
CPT/HCPCS: 97803; G0109

== ENCOUNTER 2019-08-02 14:15 | Outpatient (RCR) | payer SELFPAY ==
[2019-04-09 09:48] VITALS: BMI 48.2
== END 2019-08-02 23:59 ==
LOC: PR 14:15
PROVIDERS: Family Provider Physician Assistant; PCP Physician Assistant; Visit Provider Internal Medicine Critical Care Medicine
DX: Z00.00 Encounter for general adult medical examination without abnormal findings (principal)

== ENCOUNTER 2019-08-16 15:00 | Outpatient (RCR) | payer BC, SELFPAY ==
[2019-04-09 09:48] VITALS: BMI 48.2
== END 2019-08-31 23:59 ==
LOC: NS 15:00
PROVIDERS: Family Provider Physician Assistant; PCP Physician Assistant; Visit Provider Internal Medicine Critical Care Medicine
DX: Z71.3 Dietary counseling and surveillance (principal); G47.33 Obstructive sleep apnea (adult) (pediatric); J44.9 Chronic obstructive pulmonary disease, unspecified; I10 Essential (primary) hypertension; E66.9 Obesity, unspecified; J96.01 Acute respiratory failure with hypoxia
CPT/HCPCS: 97803; G0109

== ENCOUNTER 2019-08-30 14:15 | Outpatient (RCR) | payer SELFPAY ==
[2019-04-09 09:48] VITALS: BMI 48.2
== END 2019-08-31 23:59 ==
LOC: PR 14:15
PROVIDERS: Family Provider Physician Assistant; PCP Physician Assistant; Referring Provider Internal Medicine Critical Care Medicine; Visit Provider Internal Medicine Critical Care Medicine
DX: Z00.00 Encounter for general adult medical examination without abnormal findings (principal)

== ENCOUNTER 2019-09-13 14:15 | Outpatient (RCR) | payer SELFPAY ==
[2019-04-09 09:48] VITALS: BMI 48.2
== END 2019-10-01 23:59 ==
LOC: PR 14:15
PROVIDERS: Family Provider Physician Assistant; PCP Physician Assistant; Referring Provider Internal Medicine Critical Care Medicine; Visit Provider Internal Medicine Critical Care Medicine
DX: Z00.00 Encounter for general adult medical examination without abnormal findings (principal)

== ENCOUNTER 2019-09-19 09:30 | Outpatient (RCR) | payer BC, SELFPAY ==
[2019-04-09 09:48] VITALS: BMI 48.2
== END 2019-10-01 23:59 ==
LOC: DC 09:30
PROVIDERS: Family Provider Physician Assistant; PCP Physician Assistant; Visit Provider Internal Medicine Critical Care Medicine
DX: Z71.3 Dietary counseling and surveillance (principal); G47.33 Obstructive sleep apnea (adult) (pediatric); J44.9 Chronic obstructive pulmonary disease, unspecified; I10 Essential (primary) hypertension; E66.9 Obesity, unspecified; J96.01 Acute respiratory failure with hypoxia
CPT/HCPCS: 97803; G0109

== ENCOUNTER 2019-11-04 16:04 | Outpatient (RCR) | payer SELFPAY ==
[2019-04-09 09:48] VITALS: BMI 48.2
== END 2019-12-01 23:59 ==
LOC: PR 16:04
PROVIDERS: Family Provider Physician Assistant; PCP Physician Assistant; Referring Provider Internal Medicine Critical Care Medicine; Visit Provider Internal Medicine Critical Care Medicine
DX: Z00.00 Encounter for general adult medical examination without abnormal findings (principal)

== ENCOUNTER 2019-12-10 06:15 | Outpatient (RCR) | payer SELFPAY ==
[2019-04-09 09:48] VITALS: BMI 48.2
== END 2019-12-31 23:59 ==
LOC: PR 06:15
PROVIDERS: Family Provider Physician Assistant; PCP Physician Assistant; Referring Provider Internal Medicine Critical Care Medicine; Visit Provider Internal Medicine Critical Care Medicine
DX: Z00.00 Encounter for general adult medical examination without abnormal findings (principal)

== ENCOUNTER 2020-01-01 07:26 | Outpatient (RCR) | payer SELFPAY ==
[2019-12-31 05:45] VITALS: BMI 50.1
== END 2020-01-31 23:59 ==
LOC: PR 07:26
PROVIDERS: Family Provider Physician Assistant; PCP Physician Assistant; Referring Provider Internal Medicine Critical Care Medicine; Visit Provider Internal Medicine Critical Care Medicine
DX: Z00.00 Encounter for general adult medical examination without abnormal findings (principal)

== ENCOUNTER → 2020-09-15 10:33 | Outpatient (CLI) | payer BC, SELFPAY ==
[2020-03-30 07:47] VITALS: BMI 51.0
--- NOTE | 2020-09-15 13:52 | PFTCOMP_ITS ---
COMPLETE PULMONARY FUNCTION TEST INTERPRETATION Brief HPI: Patient is a 60 year old female, currently under the care of Bianca Martin, who presents to [facility] for complete pulmonary function tests secondary to diagnosis of COPD. Respiratory therapist reports good effort and reproducible results. Interpretation: Forced expiration spirometry shows no large airways obstructive ventilatory defect with an FEV1 of 60% predicted. There is no significant bronchodilator response by strict ATS criteria. Spirograms are of good quality and plateau normally. The respiratory flow volume loop shows a normal pattern. Lung volumes by body plethysmography show a decreased total lung capacity at 3.53 L, 79% predicted. FRC and RV are elevated out of proportion. Lung volume measurements are consistent with air-trapping. Diffusion capacity by carbon monoxide is decreased at 58% predicted. The airway resistance is normal. Compared to previous pulmonary function tests from 01/09/2019, there has been improvement in spirometry, but decrease in lung volumes. Impression: Mild restrictive ventilatory defect with a dissymmetric reduction in diffusion capacity
== END ==
LOC: PSN 10:37
PROVIDERS: PCP Physician Assistant; Referring Provider Nurse Practitioner Acute Care; Visit Provider Nurse Practitioner Acute Care
DX: J44.9 Chronic obstructive pulmonary disease, unspecified (principal)
CPT/HCPCS: 94060; 94726; 94729

== ENCOUNTER → 2020-09-17 13:37 | Outpatient (CLI) | payer BC, SELFPAY ==
[2020-03-30 07:47] VITALS: BMI 51.0
[2020-09-17 13:45] VITALS: PULSE 106; PULSE 116; PULSE 118; PULSE 123; PULSE 126; PULSE 128; PULSE 130; PULSE 96; O2SAT 89; O2SAT 90; O2SAT 91; O2SAT 95
--- NOTE | 2020-09-17 14:13 | CPS ---
Pt took a rest a 4 min jarrod due to leg/hip pain
--- NOTE | 2020-09-18 05:51 | WT_ITS ---
PSN 6 Minute Walk Test - 6 Minute Walk Test 6 Minute Walk Test: 6 Minute Walk Test PSN:6-Minute Walk Test Start: 09/17/20 14:09 Freq: Status: Active Protocol: [id number] Document 09/17/20 13:45 [facility] (Rec: 09/17/20 14:14 [facility] [id number]) 6 Minute Walk Test Date Performed 09/17/20 Time Performed 13:45 Height 5 ft 2 in Weight: 125.645 kg Weight in Pounds 277.[address]: Brandon Martin Assistive device used: None Pre-test Oxygen Delivery Method Room Air Pulse Ox (%) 95 Pulse Rate (60-100 beats/min) 96 Dyspnea Oswaldo Scale (0-10) 0 Exertion Oswaldo Scale (6-20) 6 1st minute Oxygen Delivery Method Room Air Pulse Ox (%) 91 Pulse Rate (60-100 beats/min) 116 H 2nd minute Oxygen Delivery Method Room Air Pulse Ox (%) 91 Pulse Rate (60-100 beats/min) 118 H 3rd minute Oxygen Delivery Method Room Air Pulse Ox (%) 89 Pulse Rate (60-100 beats/min) 123 H 4th minute Oxygen Delivery Method Room Air Pulse Ox (%) 90 Pulse Rate (60-100 beats/min) 126 H Number of Rests Taken 1 5th minute Oxygen Delivery Method Room Air Pulse Ox (%) 90 Pulse Rate (60-100 beats/min) 128 H 6th minute Oxygen Delivery Method Room Air Pulse Ox (%) 90 Pulse Rate (60-100 beats/min) 130 H Dyspnea Oswaldo Scale (0-10) 2 Exertion Oswaldo Scale (6-20) 12 Post-test Oxygen Delivery Method Room Air Pulse Ox (%) 95 Pulse Rate (60-100 beats/min) 106 H Full Laps Walked 12 Partial Lap, Number of Tiles Walked 0 Total Distance Walked (ft) 708 09/17/20 14:13 Cardiopulmonary Services by Kaykay Armstrong Pt took a rest a 4 min jarrod due to leg/hip pain Initialized on 09/17/20 14:13 - END OF NOTE - Interpretation Interpretation: The patient was able to ambulate 780 feet over the course of 6 minutes on room air with no assistive devices or breaks. The patient did have significant desaturation from a baseline of 95% to as low as 89%. Patient also had significant tachycardia with a peak heart rate of 130 bpm. These findings are consistent with a cardiovascular limitation exercise tolerance. - Recommendations Recommendations: No supplemental oxygen is indicated at this time. However, patient should be followed closely given level of desaturation.
== END ==
LOC: PSN 13:38
PROVIDERS: PCP Physician Assistant; Referring Provider Nurse Practitioner Acute Care; Visit Provider Nurse Practitioner Acute Care
DX: J44.9 Chronic obstructive pulmonary disease, unspecified (principal)
CPT/HCPCS: 94618

== ENCOUNTER 2021-09-30 14:18 | Outpatient (CLI) | payer MEDICARE, SELFPAY ==
--- NOTE | 2021-09-30 14:22 | CT_ITS ---
STUDY: LOW DOSE CT LUNG CANCER SCREENING REASON FOR EXAM: Female, 61 years old. Smoking and gt; 30 pack years quit 2018 RADIATION DOSAGE (If Supplied By Facility): CTDIvol = ( 4.02 ) mGy, DLP = ( 139.94 ) mGycm TECHNIQUE: No contrast was administered. Low dose technique was utilized (average mAS-38 and kVp 120). 1.25 mm axial source images with a slice interval of 1.25-mm were reconstructed in lung windows. 2.5 mm axial source images with a slice interval of 2.5-mm were reconstructed in lung windows. 5.0 mm axial source images with a slice interval of 5.0-mm were reconstructed in soft tissue windows. Nodule measured using lung windows on PACS and/or independent workstation with automated measurement of minimum and maximum diameter. Nodule measurement reported as average diameter rounded to the nearest whole number. Growth is defined as an increase ins size of greater than 1.5 mm. COMPARISON: Comparison is made with prior examination dated 11/29/2018. NODULES: No suspicious nodules are seen. Emphysema: No significant emphysematous changes are seen. Endobronchial lesion: None Aorta: Atherosclerotic plaque formation of the aortic arch. Coronary arteries: Coronary artery calcification. Mediastinal nodes: Calcified subcarinal lymph nodes. Calcified left hilar lymph nodes. Calcified granuloma in the superior segment of the left lower lobe. Other chest and abdominal findings: CT/Low Dose CT Lung Screening IMPRESSION: Lung-RADS category 2 - Continue annual screening with LDCT in 12 months. IMPORTANT NOTES FOR USE: ACR Lung-RADS Version 1.1 Assessment Categories Release Date: 2018 Category: Coded 0-4 bases on nodule(s) with highest degree of suspicion. Negative screen is defined as categories 1 and 2; a positive screen is defined as categories 3 and 4. Category 3 and 4A nodules that are unchanged on interval CT should be coded as category 2, and individuals returned to screening in 12 months. Category 4X: Category 3 or 4 nodules with additional imaging findings that increase the suspicion of lung cancer, such as spiculation, GGN that doubles in size in 1 year, enlarged lymph notes, etc. Category Modifiers: S (significant finding unrelated to lung cancer) Electronically Signed: Daniel De La Paz MD at 15:06 EDT ,
== END 2021-09-30 23:59 | disposition home or self-care (01) ==
LOC: CT 14:21
PROVIDERS: PCP Family Medicine; Referring Provider Nurse Practitioner Acute Care; Visit Provider Nurse Practitioner Acute Care
DX: Z87.891 Personal history of nicotine dependence (principal)
CPT/HCPCS: 71271

== ENCOUNTER → 2022-10-01 | Outpatient (CLI) | payer MEDICARE, SELFPAY ==
--- NOTE | 2022-10-01 09:49 | CT_ITS ---
HISTORY: Current nonsmoker, 2 PPD x 20 years, quit 2018. TECHNIQUE: Helically acquired images were obtained of the chest without contrast. A radiation dose optimization technique was used for this scan. 913 images. COMPARISON: 09/30/2021, 11/29/2018. FINDINGS: LARGE AIRWAYS: Patent. LUNGS: Chronic mild atelectasis or scarring in the right middle lobe, lingula, and left lower lobe without suspicious nodule or acute alveolar consolidation. PLEURA: No pneumothorax or significant pleural effusion. HEART/PERICARDIUM: Heart within normal limits in size with coronary artery calcification noted. No pericardial effusion. VESSELS: Thoracic aorta nondilated. Mild atherosclerosis. MEDIASTINUM/TAINA: Small calcified left hilar and mediastinal lymph nodes. UPPER ABDOMEN: Unchanged appearance. BONES: Diffuse idiopathic skeletal hyperostosis. CT/Low Dose CT Lung Screening IMPRESSION: No significant interval change with mild scarring in the lungs. Lung-RADS category 1: Continue annual screening with low dose CT. Electronically Signed: Shannan Soriano MD at 11:02 EDT ,
== END | disposition home or self-care (01) ==
PROVIDERS: PCP Physician Assistant; Referring Provider Nurse Practitioner Acute Care; Visit Provider Nurse Practitioner Acute Care
DX: Z12.2 Encounter for screening for malignant neoplasm of respiratory organs (principal); F17.210 Nicotine dependence, cigarettes, uncomplicated
CPT/HCPCS: 71271

== ENCOUNTER → 2023-10-03 | Outpatient (CLI) | payer MEDICARE, SELFPAY ==
--- NOTE | 2023-10-03 13:47 | CT_ITS ---
STUDY: LOW DOSE CT LUNG CANCER SCREENING REASON FOR EXAM: Female, 63 years old. smoker. One pack per day x35 years. COPD RADIATION DOSAGE (If Supplied By Facility): CTDIvol = ( 3.18 ) mGy, DLP = ( 104.83 ) mGycm TECHNIQUE: No contrast was administered. Low dose technique was utilized (average mAS-38 and kVp 120). 1.25 mm axial source images with a slice interval of 1.25-mm were reconstructed in lung windows. 2.5 mm coronal and sagittal reformats. COMPARISON: None NODULES: No suspicious pulmonary nodules. Parenchymal: No airspace consolidation, effusion, or pneumothorax. Endobronchial lesion: No endobronchial lesion. Mild peribronchial thickening. Aorta: Mild aortic atherosclerosis without ectasia or intramural hematoma. CORONARY ARTERIES: Mild multivessel coronary atherosclerosis. Heart: No cardiomegaly or pericardial effusion. Pulmonary artery: No main pulmonary arterial enlargement. Mediastinal nodes: No mediastinal adenopathy. No bulky hilar adenopathy. Other chest and abdominal findings: Unremarkable thyroid. Unremarkable esophagus. Hepatic steatosis. CT/Low Dose CT Lung Screening IMPRESSION: No suspicious pulmonary nodules. Mild peribronchial thickening as can be seen with bronchitis/bronchiolitis. Mild coronary and aortic atherosclerosis. Hepatic steatosis. Lung-RADS category 1 - Continue annual screening with LDCT in 12 months. IMPORTANT NOTES FOR USE: ACR Lung-RADS Version 1.1 Assessment Categories Release Date: 2018 Category: Coded 0-4 bases on nodule(s) with highest degree of suspicion. Negative screen is defined as categories 1 and 2; a positive screen is defined as categories 3 and 4. Category 3 and 4A nodules that are unchanged on interval CT should be coded as category 2, and individuals returned to screening in 12 months. Category 4X: Category 3 or 4 nodules with additional imaging findings that increase the suspicion of lung cancer, such as spiculation, GGN that doubles in size in 1 year, enlarged lymph notes, etc. Category Modifiers: S (significant finding unrelated to lung cancer) Electronically Signed: Isak Naranjo MD at 5:06 EDT ,
== END | disposition home or self-care (01) ==
PROVIDERS: PCP Physician Assistant; Referring Provider Nurse Practitioner Acute Care; Visit Provider Nurse Practitioner Acute Care
DX: Z12.2 Encounter for screening for malignant neoplasm of respiratory organs (principal); F17.210 Nicotine dependence, cigarettes, uncomplicated
CPT/HCPCS: 71271

== ENCOUNTER → 2024-06-17 | Outpatient (CLI) | payer MEDICARE, SELFPAY | END | disposition home or self-care (01) | LOC: PSN 06:50 | PROVIDERS: PCP Registered Nurse; Referring Provider Nurse Practitioner Acute Care; Visit Provider Nurse Practitioner Acute Care | DX: J44.9 Chronic obstructive pulmonary disease, unspecified (principal) | CPT/HCPCS: 94060; 94726; 94729 ==

== ENCOUNTER → 2024-06-18 | Outpatient (CLI) | payer MEDICARE, SELFPAY ==
[2024-06-18 09:12] VITALS: PULSE 100; PULSE 101; PULSE 108; PULSE 118; PULSE 120; PULSE 123; PULSE 78; PULSE 89; O2SAT 90; O2SAT 91; O2SAT 95; O2SAT 96
--- NOTE | 2024-06-19 12:54 | PCM.PSN.6M ---
PSN 6 Minute Walk Test 6 Minute Walk Test 6 Minute Walk Test: 6 Minute Walk Test PSN:6-Minute Walk Test Start: 06/18/24 09:12 Freq: Status: Active Protocol: [id number].[id number] Document 06/18/24 09:12 SNOWRIP (Rec: 06/18/24 09:14 NETTA [id number]) 6 Minute Walk Test Date Performed 06/18/24 Time Performed 09:00 Height 5 ft 2 in Weight: 266 lb Weight in Pounds 266.[address]: Bianca Martin [employer] Assistive device used: None Pre-test Oxygen Delivery Method Room Air Pulse Ox (%) 95 Pulse Rate (60-100 beats/min) 78 Dyspnea Oswaldo Scale (0-10) 0 Exertion Oswaldo Scale (6-20) 6 1st minute Oxygen Delivery Method Room Air Pulse Ox (%) 96 Pulse Rate (60-100 beats/min) 100 2nd minute Oxygen Delivery Method Room Air Pulse Ox (%) 91 Pulse Rate (60-100 beats/min) 101 H 3rd minute Oxygen Delivery Method Room Air Pulse Ox (%) 90 Pulse Rate (60-100 beats/min) 108 H 4th minute Oxygen Delivery Method Room Air Pulse Ox (%) 90 Pulse Rate (60-100 beats/min) 120 H 5th minute Oxygen Delivery Method Room Air Pulse Ox (%) 91 Pulse Rate (60-100 beats/min) 118 H 6th minute Oxygen Delivery Method Room Air Pulse Ox (%) 90 Pulse Rate (60-100 beats/min) 123 H Dyspnea Oswaldo Scale (0-10) 3 Exertion Oswaldo Scale (6-20) 13 Post-test Oxygen Delivery Method Room Air Pulse Ox (%) 96 Pulse Rate (60-100 beats/min) 89 Full Laps Walked 15 Partial Lap, Number of Tiles Walked 10 Total Distance Walked (ft) 895 Interpretation Interpretation: The patient ambulated 895 feet over the course of 6 minutes beginning on room air without assistive devices. Pretesting oxygen saturation was noted to be 95% on room air. With ambulation, the giuliana oxygen saturation was 90%. This represents a significant exertional oxygen desaturation, consistent with a pulmonary limitation to exercise tolerance. Recommendations Recommendations: There is no indication for the use of supplemental oxygen at this time. However, close interval follow-up is recommended, given the degree of oxygen desaturation noted during this study.
== END | disposition home or self-care (01) ==
LOC: PSN 08:50
PROVIDERS: PCP Physician Assistant; Referring Provider Nurse Practitioner Acute Care; Visit Provider Nurse Practitioner Acute Care
DX: J44.9 Chronic obstructive pulmonary disease, unspecified (principal)
CPT/HCPCS: 94618

== ENCOUNTER → 2024-10-04 | Outpatient (CLI) | payer MEDICARE, SELFPAY ==
--- NOTE | 2024-10-04 13:37 | CT_ITS ---
PROCEDURE: LOW DOSE CT LUNG SCREENING 10/04/2024 REASON FOR EXAM: SMOKER. Previous history of smoking 1/2 pack per day for 20 years. Quit smoking 6 years ago. TECHNIQUE: Low Dose CT Lung screening without contrast. Coronal and Sagittal reconstruction series were provided. One or more dose reduction techniques were used (e.g., Automated exposure control, adjustment of the mA and/or kV according to patient size, use of iterative reconstruction technique). REFERENCE LINK: [employer] Lung-RADS RADIATION DOSE SUMMARY: CTDlvol: 4.02 mGy DLP: 140.94 mGycm COMPARISON: None. FINDINGS: PULMONARY NODULES: (Only nodules >3mm are reported) Pulmonary Nodules: None are identified. Hardware:Cholecystectomy clips in the gallbladder fossa. Lymph Nodes:No suspicious lymph nodes. Heavily calcified lymph nodes indicate healed granulomatous disease Heart and Vasculature:Normal size heart.Great vessels are unremarkable. Coronary Artery Calcifications: Mild atherosclerotic calcifications in the coronary arteries. Lungs and Airways: Clear Pleura:No pleural effusions. Upper Abdomen:No acute process in the upper abdomen. Bones:No aggressive bony process. Multilevel bridging osteophytes CT/Low Dose CT Lung Screening IMPRESSION: No suspicious pulmonary nodules are identified. Coronary artery calcification (CAC) is mild. Lung-RADS Category: 1 Other Significant Findings: None. Reading Location: [facility]
== END | disposition home or self-care (01) ==
PROVIDERS: PCP Physician Assistant; Referring Provider Nurse Practitioner Acute Care; Visit Provider Nurse Practitioner Acute Care
DX: Z12.2 Encounter for screening for malignant neoplasm of respiratory organs (principal); F17.210 Nicotine dependence, cigarettes, uncomplicated
CPT/HCPCS: 71271